=== PATIENT | male | born 1970 | race Caucasian/White ===

== ENCOUNTER → 2017-08-06 | Outpatient (CLI) | payer OTHER | LOC: M RAD 09:19 | DX: R10.9 Unspecified abdominal pain (principal); R31.9 Hematuria, unspecified ==

== ENCOUNTER → 2017-08-06 | Outpatient (REF) | payer OTHER ==
[2017-08-06 14:00] LABS: APPEARANCE, URINE CLOUDY (CLEAR); BACTERIA, URINE AUTO NEGATIVE (NEGATIVE); BILIRUBIN, URINE AUTO NEGATIVE (NEGATIVE); BLOOD, URINE BLOOD 3+ (NEGATIVE); COLOR, URINE YELLOW (YELLOW); GLUCOSE, URINE (UA) AUTO NEGATIVE (NEGATIVE); KETONE, URINE AUTO NEGATIVE (NEGATIVE); LEUKOCYTE ESTERASE, URINE AUTO NEGATIVE (NEGATIVE); MUCUS, URINE SMALL (NEGATIVE); NITRITE, URINE AUTO NEGATIVE (NEGATIVE); PROTEIN, URINE AUTO NEGATIVE (NEGATIVE); RBC, URINE AUTO 23 /HPF (0-3); SPECIFIC GRAVITY URINE AUTO 1.025 (1.002-1.035); SQUAMOUS EPITHELIAL CELL UR AU 3 /HPF (0-6); URIC ACID CRYSTALS SMALL; UROBILINOGEN, URINE AUTO 0.2 mg/dL (0.0-2.0); WBC, URINE AUTO 2 /HPF (0-3)
== END ==
LOC: M SMT 13:41
DX: N20.0 Calculus of kidney (principal); Z01.818 Encounter for other preprocedural examination

== ENCOUNTER → 2017-08-07 | Outpatient (CLI) | payer OTHER ==
[2017-08-07 13:10] LABS: HEMATOCRIT 43.4 % (42.0-52.0); HEMOGLOBIN 15.5 g/dl (14.0-18.0); MEAN CORPUSCULAR HEMOGLOBIN 29.6 pg (27.0-33.0); MEAN CORPUSCULAR HGB CONC 35.7 g/dl (32.0-36.5); PLATELET COUNT, AUTOMATED 206 10^3/uL (150-450); RED BLOOD COUNT 5.23 10^6/uL (4.30-6.10); RED CELL DISTRIBUTION WIDTH 12.3 % (11.5-14.5); WHITE BLOOD COUNT 11.2 10^3/uL (4.0-10.0)
[2017-08-07 13:20] LABS: INR 1.01; PROTHROMBIN TIME 13.4 SECONDS (12.4-14.5)
[2017-08-07 13:21] LABS: PARTIAL THROMBOPLASTIN TIME 28.8 SECONDS (26.8-37.9)
[2017-08-07 13:32] LABS: ANION GAP 10 MEQ/L (8-16); BLOOD UREA NITROGEN 23 MG/DL (7-18); CALCIUM LEVEL 8.8 MG/DL (8.5-10.1); CARBON DIOXIDE LEVEL 26 MEQ/L (21-32); CHLORIDE LEVEL 102 MEQ/L (98-107); CREATININE FOR GFR 1.62 MG/DL (0.70-1.30); GLOMERULAR FILTRATION RATE 48.9 (>60); GLUCOSE, FASTING 111 MG/DL (70-105); POTASSIUM SERUM 4.2 MEQ/L (3.5-5.1); SODIUM LEVEL 138 MEQ/L (136-145)
== END ==
LOC: M SMT 09:23
DX: N20.0 Calculus of kidney (principal)

== ENCOUNTER 2017-08-09 14:17 | Day surgery (SDC) | payer OTHER ==
[2017-08-09 15:39] LABS: APPEARANCE, URINE MANUAL CLOUDY (CLEAR); COLOR, URINE MANUAL RED (YELLOW)
[2017-08-09 15:40] LABS: BASO % 0.2 % (0.0-1.0); BILIRUBIN, URINE MANUAL NEGATIVE (NEGATIVE); BLOOD URINE MANUAL POSITIVE (NEGATIVE); EOS % 0.1 % (0.0-3.0); GLUCOSE, URINE (UA) MANUAL NEGATIVE (NEGATIVE); HEMOGLOBIN 15.1 g/dl (14.0-18.0); IMMATURE GRANULOCYTE # 0.1 10^3/uL (0-0); IMMATURE GRANULOCYTE % 0.4 % (0-0); KETONE, URINE MANUAL NEGATIVE (NEGATIVE); LEUKOCYTE ESTERASE, URINE MAN TRACE (NEGATIVE); LYMPH # 0.9 10^3/uL (1.5-4.5); LYMPH % 6.3 % (24.0-44.0); MEAN CORPUSCULAR HEMOGLOBIN 29.7 pg (27.0-33.0); MEAN CORPUSCULAR VOLUME 82.7 fl (80.0-96.0); MICROSCOPIC INDICATED? MAN YES (NO); MONO % 7.2 % (0.0-5.0); NEUTROPHILS # 11.6 10^3/uL (1.8-7.7); NEUTROPHILS % 85.8 % (36.0-66.0); NITRITE, URINE MANUAL NEGATIVE (NEGATIVE); PLATELET COUNT, AUTOMATED 206 10^3/uL (150-450); PROTEIN, URINE MANUAL 3+ mg/dL (NEGATIVE); RED BLOOD COUNT 5.08 10^6/uL (4.30-6.10); RED CELL DISTRIBUTION WIDTH 12.1 % (11.5-14.5); UROBILINOGEN, URINE MANUAL NORMAL (NORMAL); WHITE BLOOD COUNT 13.5 10^3/uL (4.0-10.0)
[2017-08-09 15:50] LABS: BACTERIA, URINE MOD AMOUNT; HYALINE CAST, URINE NONE SEEN /lpf (0-1); MICROSCOPIC EXAM PERFORMED; RBC, URINE TNTC /hpf (0-3); SQUAMOUS EPITHELIAL CELL URINE NONE SEEN /hpf (SMALL AMT)
[2017-08-09 16:06] LABS: ALBUMIN/GLOBULIN RATIO 1.21 (1.00-1.93); ALKALINE PHOSPHATASE 107 U/L (45-117); ALT/SGPT 33 U/L (12-78); ANION GAP 10 MEQ/L (8-16); AST/SGOT 13 U/L (7-37); BILIRUBIN,DIRECT 0.4 MG/DL (0.0-0.2); BILIRUBIN,TOTAL 1.4 MG/DL (0.2-1.0); BLOOD UREA NITROGEN 27 MG/DL (7-18); CALCIUM LEVEL 8.9 MG/DL (8.5-10.1); CARBON DIOXIDE LEVEL 25 MEQ/L (21-32); CHLORIDE LEVEL 100 MEQ/L (98-107); CREATININE FOR GFR 2.37 MG/DL (0.70-1.30); GLOMERULAR FILTRATION RATE 31.5 (>60); GLUCOSE, FASTING 121 MG/DL (70-105); POTASSIUM SERUM 4.2 MEQ/L (3.5-5.1); SODIUM LEVEL 135 MEQ/L (136-145); TOTAL PROTEIN 7.3 GM/DL (6.4-8.2)
[2017-08-09] MEDS: NS 1,000 ML IV (17:03)
[2017-08-09] MEDS: ONDANSETRON 4MG/2ML VIAL (J2405) IV (17:03)
[2017-08-09] MEDS: MORPHINE 4 MG/ML 1ML SYRINGE IV ×3 (17:04→19:47)
[2017-08-09] MEDS: CEFTRIAXONE SOD 2 GM in APPROPRIATE DILUENT 1 EA IV (17:47)
[2017-08-09] MEDS ORDERED: fentaNYL 100 MCG/2 ML INJECTION (J3010) As Ordered (20:28)
[2017-08-09] MEDS ORDERED: LIDOCAINE 2% INJ 100 MG/5 ML SDV (FOR ANES.) As Ordered (20:28)
[2017-08-09] MEDS ORDERED: PROPOFOL 200 MG/20 ML VIAL As Ordered (20:28)
[2017-08-09] MEDS ORDERED: MIDAZOLAM INJ 2 MG/2 ML VIAL (J2250) As Ordered (20:28)
[2017-08-09] MEDS ORDERED: CONRAY-60 60% 50ML VIAL (Q9961) As Ordered (20:31)
[2017-08-09] MEDS ORDERED: ONDANSETRON 4MG/2ML VIAL (J2405) As Ordered (20:33)
[2017-08-09] MEDS ORDERED: fentaNYL 100 MCG/2 ML INJECTION (J3010) IV (21:45)
[2017-08-09] MEDS ORDERED: ONDANSETRON 4MG/2ML VIAL (J2405) IV ×2 (21:45→22:15)
[2017-08-09] MEDS: LR 1,000 ML IV (21:45)
[2017-08-09] MEDS ORDERED: ALBUTEROL SULFATE 2.5 MG/0.5 ML INH NEB SOLN As Ordered (21:45)
[2017-08-09] MEDS ORDERED: PERCOCET 5MG/325MG TAB As Ordered (21:45)
[2017-08-09] MEDS: PERCOCET 5MG/325MG TAB PO (21:58)
[2017-08-09] MEDS ORDERED: IBUPROFEN 400 MG TAB PO (22:00)
[2017-08-09] MEDS ORDERED: MORPHINE 2 MG/ML 1ML SYRINGE IV (22:00)
[2017-08-09] MEDS ORDERED: PERCOCET 5MG/325MG TAB PO (22:00)
[2017-08-09] MEDS: D5W/0.45% SODIUM CHLORIDE 1,000 ML IV (23:00)
[2017-08-09] MEDS: oxyBUTYnin 5 MG TAB PO (23:50)
[2017-08-10 07:01] LABS: HEMATOCRIT 39.5 % (42.0-52.0); HEMOGLOBIN 13.7 g/dl (14.0-18.0); MEAN CORPUSCULAR HEMOGLOBIN 29.7 pg (27.0-33.0); MEAN CORPUSCULAR HGB CONC 34.7 g/dl (32.0-36.5); MEAN CORPUSCULAR VOLUME 85.5 fl (80.0-96.0); PLATELET COUNT, AUTOMATED 180 10^3/uL (150-450); RED BLOOD COUNT 4.62 10^6/uL (4.30-6.10); RED CELL DISTRIBUTION WIDTH 12.7 % (11.5-14.5); WHITE BLOOD COUNT 9.4 10^3/uL (4.0-10.0)
[2017-08-10 07:26] LABS: ANION GAP 9 MEQ/L (8-16); BLOOD UREA NITROGEN 25 MG/DL (7-18); CARBON DIOXIDE LEVEL 20 MEQ/L (21-32); CHLORIDE LEVEL 105 MEQ/L (98-107); GLOMERULAR FILTRATION RATE 40.7 (>60); GLUCOSE, FASTING 108 MG/DL (70-105); POTASSIUM SERUM 3.8 MEQ/L (3.5-5.1); SODIUM LEVEL 134 MEQ/L (136-145)
[2017-08-10] MEDS: ATORVASTATIN 10 MG TAB PO (10:00)
[2017-08-10] MEDS: INFLUENZA QUADRIVALENT PF VACCINE 0.5ML SYRINGE (90686) IM (12:28)
[2017-08-10] MEDS ORDERED: CEFTRIAXONE SOD 2 GM in APPROPRIATE DILUENT 1 EA IV (17:00)
== END 2017-08-10 13:25 | disposition home or self-care (01) ==
LOC: M ED 14:17 → M ED INP 23:00 → M SDC 14:18 → M ED INP 18:00 → M SDC 08-10 13:25 → M PED 23:00
DX: N20.2 Calculus of kidney with calculus of ureter (principal); E78.5 Hyperlipidemia, unspecified; E66.9 Obesity, unspecified; G47.33 Obstructive sleep apnea (adult) (pediatric); Z68.38 Body mass index [BMI] 38.0-38.9, adult; Z79.899 Other long term (current) drug therapy
CPT/HCPCS: 52332

== ENCOUNTER → 2017-08-12 | Outpatient (CLI) | payer OTHER ==
[2017-08-12 21:22] LABS: ANION GAP 9 MEQ/L (8-16); BLOOD UREA NITROGEN 18 MG/DL (7-18); CALCIUM LEVEL 8.9 MG/DL (8.5-10.1); CARBON DIOXIDE LEVEL 26 MEQ/L (21-32); CHLORIDE LEVEL 106 MEQ/L (98-107); CREATININE FOR GFR 1.19 MG/DL (0.70-1.30); GLOMERULAR FILTRATION RATE > 60.0 (>60); GLUCOSE, FASTING 91 MG/DL (70-105); POTASSIUM SERUM 4.2 MEQ/L (3.5-5.1); SODIUM LEVEL 141 MEQ/L (136-145)
== END ==
LOC: M SMT 13:25
DX: N20.0 Calculus of kidney (principal)
CPT/HCPCS: 80048

== ENCOUNTER 2017-08-16 05:55 | Day surgery (SDC) | payer OTHER ==
[2017-08-16] MEDS ORDERED: LIDOCAINE 1% MDV 20ML VIAL SQ (06:00)
[2017-08-16] MEDS ORDERED: LR 1,000 ML IV ×2 (06:00→09:45)
[2017-08-16] MEDS ORDERED: fentaNYL 100 MCG/2 ML INJECTION (J3010) As Ordered (07:16)
[2017-08-16] MEDS ORDERED: MIDAZOLAM INJ 2 MG/2 ML VIAL (J2250) As Ordered (07:16)
[2017-08-16] MEDS ORDERED: ONDANSETRON 4MG/2ML VIAL (J2405) As Ordered (07:16)
[2017-08-16] MEDS ORDERED: LIDOCAINE 2% INJ 100 MG/5 ML SDV (FOR ANES.) As Ordered (07:16)
[2017-08-16] MEDS ORDERED: dexameTHASONE 4 MG/ML 1ML VIAL (J1100) As Ordered (07:16)
[2017-08-16] MEDS ORDERED: KETOROLAC 60 MG/2 ML VIAL (J1885) As Ordered (07:16)
[2017-08-16] MEDS ORDERED: PROPOFOL 200 MG/20 ML VIAL As Ordered (07:16)
[2017-08-16] MEDS: CONRAY-60 60% 50ML VIAL (Q9961) As Ordered (07:49)
[2017-08-16] MEDS ORDERED: PHENYLephrine HCL 500 MCG/5 ML (100MCG/ML) SYRINGE (J2370) As Ordered (08:39)
[2017-08-16] MEDS ORDERED: PERCOCET 5MG/325MG TAB PO ×2 (09:45)
[2017-08-16] MEDS ORDERED: ONDANSETRON 4MG/2ML VIAL (J2405) IV (09:45)
[2017-08-16] MEDS ORDERED: fentaNYL 100 MCG/2 ML INJECTION (J3010) IV (09:45)
[2017-08-16] MEDS ORDERED: oxyBUTYnin 5 MG TAB PO (09:45)
== END 2017-08-16 10:15 | disposition home or self-care (01) ==
LOC: M SDC 05:55
DX: N20.0 Calculus of kidney (principal); E78.5 Hyperlipidemia, unspecified; R06.02 Shortness of breath; G47.33 Obstructive sleep apnea (adult) (pediatric); Z79.899 Other long term (current) drug therapy; Z72.0 Tobacco use
CPT/HCPCS: 52356

== ENCOUNTER → 2018-06-10 | Outpatient (CLI) | payer OTHER | LOC: M RAD 12:39 | DX: J32.0 Chronic maxillary sinusitis (principal); J34.2 Deviated nasal septum | CPT/HCPCS: 70486 ==

== ENCOUNTER 2018-06-30 08:12 | Day surgery (SDC) | payer OTHER ==
[~2018-06-30] VITALS: Ht 182.9 cm; Wt 122.5 kg
[~2018-06-30 08:12] MED LIST: ATOR1TAB19 PO; CIPR-249 PO; FLOM0.4C39 PO; LIDOCAINE 1% MDV 20ML VIAL SQ PRN; MODA100T13 PO; OXYC1TAB23 PO; PERC5TAB12 PO
[2018-06-30] MEDS ORDERED: LR 1,000 ML IV ONE (08:30)
[2018-06-30] MEDS ORDERED: fentaNYL 100 MCG/2 ML INJECTION (J3010) As Ordered ONE (10:12)
[2018-06-30] MEDS ORDERED: PROPOFOL 200 MG/20 ML VIAL As Ordered ONE ×2 (10:12→10:48)
[2018-06-30] MEDS ORDERED: ROCURONIUM BROMIDE 50 MG/5 ML VIAL As Ordered ONE (10:12)
[2018-06-30] MEDS ORDERED: LIDOCAINE 2% INJ 100 MG/5 ML SDV (FOR ANES.) As Ordered ONE (10:12)
[2018-06-30] MEDS ORDERED: MIDAZOLAM INJ 2 MG/2 ML VIAL (J2250) As Ordered ONE (10:12)
[2018-06-30] MEDS ORDERED: LIDOCAINE W/EPINEPHRINE 1% 20ML VIAL As Ordered ONE (10:33)
[2018-06-30] MEDS ORDERED: OXYMETAZOLINE NASAL SPRAY (AFRIN) As Ordered ONE (10:33)
[2018-06-30] MEDS ORDERED: METHYLENE BLUE 0.5% (5MG/ML) 10 ML AMP (PROVAYBLUE)(Q9968 PER 1MG) As Ordered ONE (10:33)
[2018-06-30] MEDS ORDERED: EPINEPHrine 1MG/ML INJ 30ML MD-VIAL As Ordered ONE (10:33)
[2018-06-30] MEDS ORDERED: dexameTHASONE 4 MG/ML 1ML VIAL (J1100) As Ordered ONE (11:03)
[2018-06-30] MEDS ORDERED: ONDANSETRON 4MG/2ML VIAL (J2405) As Ordered ONE (11:03)
[2018-06-30] MEDS ORDERED: HYDROMORPHONE HCL 0.5 MG/ 0.5 ML SYRINGE (J1170 PER 1) IV PRN (12:45)
[2018-06-30] MEDS ORDERED: IBUPROFEN 800 MG TAB PO PRN (12:45)
[2018-06-30] MEDS ORDERED: PERCOCET 5MG/325MG TAB PO PRN ×2 (12:45)
[2018-06-30] MEDS ORDERED: LR 1,000 ML IV SCH (12:45)
[2018-06-30] MEDS ORDERED: ONDANSETRON 4MG/2ML VIAL (J2405) IV PRN (12:45)
[2018-06-30] MEDS ORDERED: fentaNYL 100 MCG/2 ML INJECTION (J3010) IV PRN (12:45)
[2018-06-30 13:52] VITALS: BP 115/72
--- NOTE | 2018-08-06 12:48 | RO ---
DATE OF PROCEDURE: 06/30/2018 PREPROCEDURE DIAGNOSES: 1. Deviated nasal septum. 2. Chronic left maxillary sinusitis. POSTPROCEDURE DIAGNOSES: 1. Deviated nasal septum. 2. Chronic left maxillary sinusitis. PROCEDURE: 1. Septoplasty. 2. Left endoscopic antrostomy with ethmoidectomy. SURGEON: Dr. Gamaliel Foster. WIRE WEAVING LOOM SETTER: ANESTHESIA: General endotracheal anesthesia. INDICATION: This is a 48-year-old who presents with a long history of nasal obstruction, chronic congestion and recurring infections in the nose. DESCRIPTION OF PROCEDURE: Under satisfactory general endotracheal anesthesia administered and a pharyngeal pack placed. The nose was prepared for surgery by putting cotton-soaked pledgets with Afrin solution to the nasal cavity bilaterally. 1% Xylocaine with 1:100,000 epinephrine was used to inject the nasal septum. A Uriah incision was made on the left side of the nose. A mucoperichondrial flap and envelope was created on the left side of the nasal septum and carried down to the junction of the bony and cartilaginous septum. This was then with an elevator, and an envelope was then created on the right side of the septum. A Meche scissors was used to make a cut high in the perpendicular plate in the midportion of the vomer, and a central segment of the bony septum was resected. Next, with the round knife on the [place] elevator, a strip of cartilage was resected from the floor of the nose, mobilizing the quadrilateral cartilage and creating a swinging door. Then, a central segment of cartilaginous septum was resected, preserving a 1 cm dorsal and caudal strut. Double-action rongeur was used to take down deflected portions of the perpendicular plate, as well. Finally, the maxillary crest spur was taken down after elevating mucoperiosteum off both sides of it with a chisel. A segment of the resected cartilage was morselized and placed back into the septal envelope. The incision was closed using an interrupted #5-0 chromic suture. Then, a #4-0 plain suture was placed in a [id number]-ykb-[id number] fashion through the two leaves of mucoperichondrium to appose them. Endoscopic surgery: We started on the left side first using the 0-degree telescope for the procedure. Injection was done with 1% Xylocaine with 1:100,000 epinephrine to the left lateral nasal wall middle turbinate. Microdebrider was the primary instrument and the uncinate process was taken down. Ethmoid bulla perforated and resected away with the microdebrider. The grand lamella was then perforated in the medial inferior quadrant and then working posteriorly to anteriorly, following the lamina papyracea skull base lamella bone and hyperplastic mucosa was resected. Superior, the superior ethmoid cell was opened and the remnants and process was taken down to enlarge the access to the nasal frontal recess. Finally, the antral maxillary sinus ostia was identified. It was cannulated with a side suction and then using a combination of the microdebrider and side-biters enlarged a antrostomy was then created and thick mucous secretions were evacuated from the maxillary sinuses. There appeared to be a mucocele in the floor of the sinus that was also resected by using the microdebrider to reach it. Adrenaline pledgets were placed into the left side of the nose, the middle meatus and after 4 minutes, there was no significant bleeding and they were removed. Then a Propel implant was inserted with Sinu-foam placed into the Propel. Pharyngeal pack was removed, throat suctioned and patient awakened and extubated and sent to the recovery room in satisfactory condition. He will be seen back in the office in 3 days.
== END 2018-06-30 13:54 | disposition home or self-care (01) ==
LOC: M SDC 08:12 → EEVIPCON 08:12 → M SDC 13:54
PROVIDERS: ATTEND Specialist
DX: J34.2 Deviated nasal septum (principal); J32.0 Chronic maxillary sinusitis; E78.00 Pure hypercholesterolemia, unspecified; R29.898 Other symptoms and signs involving the musculoskeletal system; R06.83 Snoring; G47.33 Obstructive sleep apnea (adult) (pediatric); E66.9 Obesity, unspecified; Z68.37 Body mass index [BMI] 37.0-37.9, adult; Z79.899 Other long term (current) drug therapy; Z87.442 Personal history of urinary calculi
CPT/HCPCS: 30520; 31255; 31256; 88300; C2625; J1100; J2250; J2405; J3010; Q9968

== ENCOUNTER → 2018-11-07 | Outpatient (REF) | payer OTHER ==
[~2018-11-07] MED LIST changes: -LIDOCAINE 1% MDV 20ML VIAL SQ PRN
[2018-11-07 18:11] LABS: APPEARANCE, URINE CLEAR (CLEAR); BACTERIA, URINE AUTO NEGATIVE (NEGATIVE); BILIRUBIN, URINE AUTO NEGATIVE (NEGATIVE); BLOOD, URINE BLOOD 3+ (NEGATIVE); CALCIUM OXALATE CRYSTALS SMALL; COLOR, URINE YELLOW (YELLOW); GLUCOSE, URINE (UA) AUTO NEGATIVE (NEGATIVE); KETONE, URINE AUTO NEGATIVE (NEGATIVE); LEUKOCYTE ESTERASE, URINE AUTO NEGATIVE (NEGATIVE); MUCUS, URINE SMALL (NEGATIVE); NITRITE, URINE AUTO NEGATIVE (NEGATIVE); PROTEIN, URINE AUTO NEGATIVE (NEGATIVE); RBC, URINE AUTO 72 /HPF (0-3); SPECIFIC GRAVITY URINE AUTO 1.021 (1.002-1.035); SQUAMOUS EPITHELIAL CELL UR AU 0 /HPF (0-6); WBC, URINE AUTO 2 /HPF (0-3)
== END ==
LOC: M SMT 17:11
PROVIDERS: ATTEND Nurse Practitioner Women's Health
DX: R31.0 Gross hematuria (principal)

== ENCOUNTER → 2018-11-12 | Outpatient (CLI) | payer OTHER ==
--- NOTE | 2018-11-12 19:15 | REP ---
CT of the abdomen pelvis without IV and oral contrast for renal calculi: Comparison is 08/06/2017. There is a 13 x 8 mm nonobstructive calcification in the left renal pelvis as an interval change. Left kidney: There are three small nonobstructive calculi in the left renal lower pole each measuring approximate 3 mm in diameter, as an interval change. The previous left renal calculus near the left UPJ is no longer present. There is no hydronephrosis or perinephric stranding. Right Kidney: There is 8 x 6 ml calculus, nonobstructive, in the right renal pelvis. This measured 6 mm previously. There is a nonobstructive 5 ml calculus in the right renal pelvis, not present previously. The previous right renal calculi are no longer identified. There is no right hydronephrosis or perinephric stranding. There are no ureteral calculi on the right on the left. There are no bladder calculi. The visualized lung melchor are unremarkable. The unenhanced hepatic parenchyma, gallbladder, pancreas, spleen, adrenals and abdominal aorta are unremarkable and unchanged. There is no bowel distension or obstruction. Mesentery is unremarkable. Pelvis: The appendix is unremarkable. There is no adenopathy or ascites. There is diverticulosis without diverticulitis. Impression: There are bilateral renal calculi as described. There is no hydronephrosis. There are no ureteral calculi. No bladder calculi. Diverticulosis without diverticulitis. Electronically Signed by Donato Lechuga MD 11/12/2018 07:07 P
== END ==
LOC: M RAD 16:04
PROVIDERS: ATTEND Nurse Practitioner Women's Health
DX: N20.0 Calculus of kidney (principal); K57.90 Diverticulosis of intestine, part unspecified, without perforation or abscess without bleeding; Z87.442 Personal history of urinary calculi

== ENCOUNTER → 2018-11-21 | Outpatient (CLI) | payer OTHER ==
[2018-11-21 14:17] LABS: HEMATOCRIT 43.9 % (42.0-52.0); MEAN CORPUSCULAR HEMOGLOBIN 29.7 pg (27.0-33.0); MEAN CORPUSCULAR HGB CONC 34.2 g/dl (32.0-36.5); MEAN CORPUSCULAR VOLUME 86.9 fl (80.0-96.0); PLATELET COUNT, AUTOMATED 185 10^3/uL (150-450); RED BLOOD COUNT 5.05 10^6/uL (4.30-6.10); WHITE BLOOD COUNT 5.7 10^3/uL (4.0-10.0)
[2018-11-21 14:23] LABS: BLOOD UREA NITROGEN 19 MG/DL (7-18); CALCIUM LEVEL 8.7 MG/DL (8.5-10.1); CARBON DIOXIDE LEVEL 28 MEQ/L (21-32); CHLORIDE LEVEL 107 MEQ/L (98-107); CREATININE FOR GFR 1.12 MG/DL (0.70-1.30); GLOMERULAR FILTRATION RATE > 60.0 (>60); GLUCOSE, FASTING 86 MG/DL (70-100); POTASSIUM SERUM 4.5 MEQ/L (3.5-5.1); SODIUM LEVEL 140 MEQ/L (136-145)
[2018-11-21 14:43] LABS: INR 0.95; PROTHROMBIN TIME 12.8 SECONDS (12.1-14.4)
[2018-11-21 14:44] LABS: PARTIAL THROMBOPLASTIN TIME 30.3 SECONDS (25.4-37.6)
== END ==
LOC: M SMT 09:10
PROVIDERS: ATTEND Nurse Practitioner Women's Health
DX: N20.0 Calculus of kidney (principal); Z01.812 Encounter for preprocedural laboratory examination

== ENCOUNTER 2018-11-26 11:53 | Day surgery (SDC) | payer OTHER ==
[~2018-11-26] VITALS: Ht 182.9 cm; Wt 126.1 kg
[~2018-11-26 11:53] MED LIST changes: +LR 1,000 ML IV ONE; +ceFAZolin SOD 1 GM in D5W MINI-BAG PLUS 50 ML IV ONE
[2018-11-26] MEDS ORDERED: OXYC1TAB23 PO (12:44)
[2018-11-26] MEDS ORDERED: MIDAZOLAM INJ 2 MG/2 ML VIAL (J2250) As Ordered ONE (14:52)
[2018-11-26] MEDS ORDERED: fentaNYL 100 MCG/2 ML INJECTION (J3010) As Ordered ONE (14:53)
[2018-11-26] MEDS ORDERED: ONDANSETRON 4MG/2ML VIAL (J2405) As Ordered ONE (14:53)
[2018-11-26] MEDS ORDERED: dexameTHASONE 4 MG/ML 1ML VIAL (J1100) As Ordered ONE (14:53)
[2018-11-26] MEDS ORDERED: PROPOFOL 200 MG/20 ML VIAL As Ordered ONE (14:53)
[2018-11-26] MEDS ORDERED: LIDOCAINE 2% INJ 100 MG/5 ML SDV (FOR ANES.) As Ordered ONE (14:53)
[2018-11-26] MEDS ORDERED: CONRAY-60 60% 50ML VIAL (Q9961) As Ordered ONE (15:56)
[2018-11-26] MEDS ORDERED: PERCOCET 5MG/325MG TAB PO PRN ×2 (18:45)
[2018-11-26] MEDS ORDERED: fentaNYL 100 MCG/2 ML INJECTION (J3010) IV PRN (18:45)
[2018-11-26] MEDS ORDERED: oxyBUTYnin 5 MG TAB PO PRN (18:45)
[2018-11-26] MEDS ORDERED: ONDANSETRON 4MG/2ML VIAL (J2405) IV PRN (18:45)
[2018-11-26] MEDS ORDERED: LR 1,000 ML IV SCH (18:45)
[2018-11-26] MEDS: PERCOCET 5MG/325MG TAB PO PRN ×2 (19:12→19:42)
--- NOTE | 2018-11-26 19:24 | REP ---
RETROGRADE PYELOGRAM, ONE VIEW: HISTORY: Bilateral renal stones. A single radiograph was obtained with a C-ARM. The patient is status-post bilateral ureteral stent placement. Fluoroscopy time 24 seconds. IMPRESSION:Retrograde pyelogram as described above. Electronically Signed by Keith Gu MD 11/26/2018 07:26 P
[2018-11-26] MEDS ORDERED: KETOROLAC 30 MG/ML VIAL (J1885) As Ordered ONE (20:38)
[2018-11-26] MEDS ORDERED: KETOROLAC 30 MG/ML VIAL (J1885) IV ONE (20:45)
[2018-11-26 21:20] VITALS: BP 127/70
--- NOTE | 2018-11-27 10:09 | RO ---
DATE OF PROCEDURE: 11/26/2018 PREPROCEDURE DIAGNOSIS: Bilateral kidney stones. POSTPROCEDURE DIAGNOSIS: Bilateral kidney stones. PROCEDURE: Cystoscopy, bilateral ureteroscopy and laser lithotripsy and basket extraction of the stones, bilateral retrograde pyelogram with intraoperative interpretation of images, bilateral ureteral stent placement. SURGEON: Dr. Tomás Guerra. NIGHT MANAGER: None. ANESTHESIA: General. OPERATIVE INDICATIONS: This is a 48-year-old male who was recently found to have bilateral kidney stones measuring up to [address] scan. He was brought to the operating room today for treatment. DESCRIPTION OF PROCEDURE: The patient was brought to the operating room and general anesthesia induced. Prophylactic antibiotics were infused. He was then placed in the dorsal lithotomy position and prepped and draped in the usual sterile fashion. A rigid cystoscope was then inserted into the urethral meatus and advanced to the bladder. Once inside the bladder, a guidewire was advanced up the left collecting system. A ureteral access sheath was advanced up the left collecting system. I then went up the access sheath with the flexible ureteroscope and examined the kidney thoroughly. Of note, getting the scope into the kidney was a little bit difficult as the patient had a moderately narrow ureter. In the lower pole of the left kidney, an approximately a 1 cm stone was seen. This stone was repositioned and then fragmented into several smaller pieces using 200 micron laser fiber. All the fragments were then removed using a stone basket. Once I was satisfied all the stone fragments had been removed, a retrograde pyelogram performed. It was notable for mild left hydronephrosis with no extravasation. I then withdrew the ureteroscope along with the access sheath and utilized the wire to advance a 6-Yemeni x 22-32 cm JJ ureteral stent up the left collecting system. The wire was then removed and there was adequate curls of the stent in the left renal pelvis and in the bladder. I then turned my attention to the right collecting system and advanced the wire up the right collecting system. I advanced an access sheath up the right collecting system. I went up the access sheath with the flexible ureteroscope and examined the right kidney thoroughly. In the lower pole jannette I found a 1 cm size stone as well as a few other smaller stones. The 1 cm stone was repositioned and then fragmented into to smaller pieces using a 200 micron laser fiber. All the visible stones within the right kidney were then removed using a basket. Once done, a retrograde pyelogram was performed and was notable for mild right hydronephrosis with no extravasation. I then withdrew the ureteroscope along with the access sheath and no additional stones were seen within the ureter. I then utilized the wire to advance a 6-Yemeni x 22-32 cm JJ ureteral stent up the right collecting system. The wire was removed and there were adequate curls of the stent in the right renal pelvis and in the bladder. The bladder was emptied of all fluids and this marked the completion of the procedure. The patient was then taken out of the dorsal lithotomy position, awakened from anesthesia and transferred to the recovery room instable condition. ESTIMATED BLOOD LOSS: 5 mL. COMPLICATIONS: None. SPECIMENS: Kidney stone fragments. PLAN: Patient will followup in the clinic in a few weeks for stent removal. LARRY
== END 2018-11-26 21:30 | disposition home or self-care (01) ==
LOC: M SDC 11:53
PROVIDERS: ATTEND Urology
DX: N20.0 Calculus of kidney (principal); E78.5 Hyperlipidemia, unspecified; R06.83 Snoring; G47.33 Obstructive sleep apnea (adult) (pediatric); E66.9 Obesity, unspecified; Z68.37 Body mass index [BMI] 37.0-37.9, adult

== ENCOUNTER → 2018-12-17 | Outpatient (CLI) | payer OTHER ==
[~2018-12-17] MED LIST changes: -LR 1,000 ML IV ONE; -ceFAZolin SOD 1 GM in D5W MINI-BAG PLUS 50 ML IV ONE
--- NOTE | 2018-12-17 13:46 | REP ---
Clinical: Ureteral stone. Technique: Single supine view of the abdomen and pelvis. Findings: Bilateral ureteral stents in satisfactory position. No obvious urinary tract calcifications are appreciated. Bowel gas pattern is nonspecific. Skeletal structures are intact. Impression: Ureteral stent in satisfactory position. No obvious urinary calcifications identified. Electronically Signed by Allen Dodge MD 12/17/2018 01:37 P
== END ==
LOC: M SMT 13:22
PROVIDERS: ATTEND Urology
DX: Z96.0 Presence of urogenital implants (principal); Z87.442 Personal history of urinary calculi

== ENCOUNTER → 2018-12-18 | Outpatient (REF) | payer OTHER | LOC: M LAB REF 12:54 | PROVIDERS: ATTEND Nurse Practitioner Adult Health | DX: N20.0 Calculus of kidney (principal) ==

== ENCOUNTER → 2018-12-28 | Outpatient (REF) | payer OTHER ==
[2018-12-28 21:55] LABS: APPEARANCE, URINE CLEAR (CLEAR); BACTERIA, URINE AUTO NEGATIVE (NEGATIVE); BILIRUBIN, URINE AUTO NEGATIVE (NEGATIVE); BLOOD, URINE BLOOD 2+ (NEGATIVE); COLOR, URINE YELLOW (YELLOW); GLUCOSE, URINE (UA) AUTO NEGATIVE (NEGATIVE); KETONE, URINE AUTO NEGATIVE (NEGATIVE); LEUKOCYTE ESTERASE, URINE AUTO NEGATIVE (NEGATIVE); NITRITE, URINE AUTO NEGATIVE (NEGATIVE); PROTEIN, URINE AUTO NEGATIVE (NEGATIVE); RBC, URINE AUTO 17 /HPF (0-3); SPECIFIC GRAVITY URINE AUTO 1.018 (1.002-1.035); SQUAMOUS EPITHELIAL CELL UR AU 0 /HPF (0-6); UROBILINOGEN, URINE AUTO 0.2 mg/dL (0.0-2.0); WBC, URINE AUTO 6 /HPF (0-3)
== END ==
LOC: M LAB REF 10:18
PROVIDERS: ATTEND Physician Assistant
DX: N39.0 Urinary tract infection, site not specified (principal)

== ENCOUNTER → 2019-01-05 | Outpatient (REF) | payer OTHER ==
[2019-01-05 18:59] LABS: APPEARANCE, URINE CLEAR (CLEAR); BACTERIA, URINE AUTO NEGATIVE (NEGATIVE); BILIRUBIN, URINE AUTO NEGATIVE (NEGATIVE); BLOOD, URINE BLOOD 2+ (NEGATIVE); COLOR, URINE YELLOW (YELLOW); GLUCOSE, URINE (UA) AUTO NEGATIVE (NEGATIVE); KETONE, URINE AUTO NEGATIVE (NEGATIVE); LEUKOCYTE ESTERASE, URINE AUTO NEGATIVE (NEGATIVE); MUCUS, URINE SMALL (NEGATIVE); NITRITE, URINE AUTO NEGATIVE (NEGATIVE); PROTEIN, URINE AUTO NEGATIVE (NEGATIVE); RBC, URINE AUTO 7 /HPF (0-3); SQUAMOUS EPITHELIAL CELL UR AU 0 /HPF (0-6); UROBILINOGEN, URINE AUTO 0.2 mg/dL (0.0-2.0); WBC, URINE AUTO 2 /HPF (0-3)
== END ==
LOC: M SMT 17:18
PROVIDERS: ATTEND Nurse Practitioner Women's Health
DX: N39.0 Urinary tract infection, site not specified (principal)

== ENCOUNTER → 2019-01-21 | Outpatient (CLI) | payer OTHER ==
[2019-01-21 13:33] LABS: BLOOD UREA NITROGEN 18 MG/DL (7-18); CALCIUM LEVEL 9.3 MG/DL (8.5-10.1); CARBON DIOXIDE LEVEL 26 MEQ/L (21-32); CHLORIDE LEVEL 105 MEQ/L (98-107); CREATININE FOR GFR 1.17 MG/DL (0.70-1.30); GLOMERULAR FILTRATION RATE > 60.0 (>60); GLUCOSE, FASTING 92 MG/DL (70-100); POTASSIUM SERUM 4.7 MEQ/L (3.5-5.1); SODIUM LEVEL 138 MEQ/L (136-145); URIC ACID 6.3 MG/DL (3.5-7.2)
== END ==
LOC: M SMT 08:02
PROVIDERS: ATTEND Nurse Practitioner Women's Health
DX: N20.0 Calculus of kidney (principal)

== ENCOUNTER → 2019-04-21 | Outpatient (REF) | payer OTHER ==
[2019-04-21 18:15] LABS: FREE T4 1.03 NG/DL (0.76-1.46); THYROID STIMULATING HORMONE 1.16 uIU/ML (0.358-3.740)
[2019-04-24 00:08] LABS: VITAMIN D 1,25 DIHYDROXY 51.2 pg/mL (19.9-79.3)
== END ==
LOC: M LAB REF 17:03
PROVIDERS: ATTEND Internal Medicine Nephrology
DX: R82.994 Hypercalciuria (principal)

== ENCOUNTER → 2019-07-01 | Outpatient (REF) | payer OTHER ==
[2019-07-01 16:02] LABS: RHEUMATOID FACTOR QUANT < 10.0 IU/ML (<15.0)
[2019-07-01 16:14] LABS: FOLATE 11.5 NG/ML; VITAMIN B12 LEVEL 482 PG/ML
[2019-07-02 14:07] LABS: ANTINUCLEAR ANTIBODIES DIRECT Negative (Negative); CERULOPLASMIN 21.1 mg/dL (16.0-31.0)
== END ==
LOC: M LAB REF 13:04
PROVIDERS: ATTEND Psychiatry & Neurology Neurology
DX: R26.89 Other abnormalities of gait and mobility (principal)

== ENCOUNTER → 2019-10-09 | Outpatient (CLI) | payer OTHER ==
--- NOTE | 2019-10-09 12:22 | REP ---
CT abdomen pelvis without IV or oral contrast: History: Acute kidney failure. Comparison CT study is from November 12, 2018. CT findings: Digital preliminary preload supervisor radiograph is unremarkable. Normal bowel gas pattern is seen. Axial CT images demonstrate that the lung bases are clear. The liver is normal in size, homogeneous in texture. There is an accessory splenule. Spleen is 14.4 cm in greatest dimension mildly prominent in size but unchanged. No adrenal lesion is seen. There is a stable celiac axis lymph node in the upper abdomen measuring 11 mm in short axis dimension unchanged from the prior study. No retroperitoneal mass or adenopathy is seen. No abnormalities noted in the gallbladder or within the pancreas. Small and large bowel loops are normal in the upper abdomen and pelvis. Normal appendix is seen in the right lower quadrant. There is sigmoid colon diverticulosis and distal descending colon diverticulosis without CT evidence of diverticulitis. There is a linear metallic density and within the lumen of one of the distal small bowel loops in the right lower quadrant. This is 16 mm in length. Apparently ingested material versus endoscopically placed mucosal clip. Correlate with history. There is a 3 mm intrarenal calculus in the right kidney collecting system lower pole. A 2 mm intrarenal calculus is seen in the lower pole of the left kidney. No hydronephrosis is noted on either side. The large calculus noted in the renal pelvis in each kidney on the November 12, 2018 study is no longer apparent. No hydroureter or ureteral calculus is observed. No bladder calculus is seen. There are dystrophic calcifications in the prostate gland. Seminal vesicles and urinary bladder are unremarkable. Impression: No evidence of hydronephrosis. There is a tiny intrarenal calculus in each kidney. No ureteral stone or bladder stone seen. Left colonic diverticulosis. Normal appendix. Small cylindrical apparently ingested metallic density in the distal ileum uncertain significance. Question endoscopically placed mucosal clip versus ingested material. Electronically Signed by Esau Brown MD 10/09/2019 03:51 P
== END ==
LOC: M RAD 11:20
PROVIDERS: ATTEND Internal Medicine Nephrology
DX: N17.9 Acute kidney failure, unspecified (principal); Z87.442 Personal history of urinary calculi; R82.994 Hypercalciuria; N20.0 Calculus of kidney; K57.30 Diverticulosis of large intestine without perforation or abscess without bleeding

== ENCOUNTER 2020-08-25 12:06 | Emergency (ER) | payer OTHER ==
[~2020-08-25] VITALS: Ht 182.9 cm; Wt 125.0 kg
--- OUTSIDE RECORDS SUMMARY | 2020-08-25 12:13 | CCD | Continuity of Care Document ---
Author Author Igor SIBLEY M.D. Organization Unknown Address [address] [place] [id number] Phone [phone] Care Team Providers Care Health Aide Name Role Phone Katie José AUTM [phone] Problems Active Problems Provider Date Obstructive sleep apnea syndrome Kari Sibley M.D. Onset: 03/06/2018 Malaise and fatigue Kari Sibley M.D. Onset: 03/06/2018 Hypersomnia Kari Sibley M.D. Onset: 03/06/2018 Attention deficit hyperactivity disorder, predominantl y inattentive type Kari Sibley M.D. Onset: 03/06/2018 Mild cognitive disorder Kari Sibley M.D. Onset: 8 Periodic limb movement disorder Kari Sibley M.D. Onset: 0 12/24/2018 Social History Type Date Description Comments Sex Unknown Tobacco Use Start: Unknown Patient has never smoked Allergies, Adverse Reactions, Alerts Description No Known Drug Allergies Medications Active Medications SIG Qnty Indications Ordering Provide r Date Modafinil 100mg Tablets 1 po bid at 900 and 1300 60tabs Kari Sibley M.D. 03/01/2020 Methylphenidate HCL 20mg Tablets take 1 by mouth bid. 60tabs Kari Sibley M.D. 06/30/2019 Immunizations Description No Information Available Vital Signs Date Vital Result Comment 03/06/2018 8:53am BP Systolic 110 mmHg BP Diastolic 70 mmHg Heart Rate 74 /min Respiratory Rate 14 /min Height 72 inches 6'0" Weight 275.00 lb BMI (Body Mass Index) 37.3 kg/m2 [place] Body Weight 178 lb Results Description No Information Available Procedures Description No Information Available Medical Devices Description No Information Available Encounters Type Date Location Provider Dx Diagnosis Office Visit 07/05/2020 12:15p [place] G47.33 Obstructive sleep apnea (adult) (pediatric) G47.61 Periodic limb movement disor jose G47.14 Hypersomnia due to medical c ondition R53.83 Other fatigue R41.840 Attention and concentration deficit G31.84 Mild cognitive impairment, s o stated Office Visit 03/01/2020 2:15p Main office - [facility] Diaz G47.33 Obstructive sleep apnea (adult) (pediatric) G47.61 Periodic limb movement disor jose G47.14 Hypersomnia due to medical c ondition R53.83 Other fatigue R41.840 Attention and concentration deficit G31.84 Mild cognitive impairment, s o stated Assessments Date Code Description Provider 07/05/2020 G47.33 Obstructive sleep apnea (adult) (pediatric) Kari Sibley M.D. 07/05/2020 G47.61 Periodic limb movement disorder Kari Sibley M.D. 07/05/2020 G47.14 Hypersomnia due to medical condi tion Jacque Dukes.DPatricia 07/05/2020 R53.83 Other fatigue Kari Sibley M.D. 07/05/2020 R41.840 Attention and concentration defi cit Kari Sibley M.D. 07/05/2020 G31.84 Mild cognitive impairment, so st atengozi Sibley M.D. 03/01/2020 G47.33 Obstructive sleep apnea (adult) (pediatric) Kari Sibley M.D. 03/01/2020 G47.61 Periodic limb movement disorder Kari Sibley M.D. 03/01/2020 G47.14 Hypersomnia due to medical condi tion Kari Sibley M.D. 03/01/2020 R53.83 Other fatigue Kari Sibley M.D. 03/01/2020 R41.840 Attention and concentration defi cit Kari Sibley M.D. 03/01/2020 G31.84 Mild cognitive impairment, so st atengozi Sibley M.D. Plan of Treatment No Information Available Functional Status Description No Information Available Mental Status Description No Information Available Referrals Description No Information Available
--- OUTSIDE RECORDS SUMMARY | 2020-08-25 12:13 | CCD ---
Author Author [facility] Organization [facility] Address Unknown Phone Unavailable Care Team Providers Care Private Wealth Advisor Name Role Phone LePine, M Katie DOCUMENTATION BILLING CLERK Unavailable Unavailable LePine, M Katie DOCUMENTATION BILLING CLERK Unavailable Unavailable LePine, M Katie DOCUMENTATION BILLING CLERK Unavailable Unavailable LePine, M Katie DOCUMENTATION BILLING CLERK Unavailable Unavailable LePine, M Katie DOCUMENTATION BILLING CLERK Unavailable Unavailable LePine, M Katie DOCUMENTATION BILLING CLERK Unavailable Unavailable LePine, M Katie DOCUMENTATION BILLING CLERK Unavailable Unavailable LePine, M Katie DOCUMENTATION BILLING CLERK Unavailable Unavailable LePine, M Katie DOCUMENTATION BILLING CLERK Unavailable Unavailable LePine, M Katie DOCUMENTATION BILLING CLERK Unavailable Unavailable LePine, M Katie DOCUMENTATION BILLING CLERK Unavailable Unavailable LePine, M Katie DOCUMENTATION BILLING CLERK Unavailable Unavailable LePine, M Katie DOCUMENTATION BILLING CLERK Unavailable Unavailable LePine, M Katie DOCUMENTATION BILLING CLERK Unavailable Unavailable LePine, M Katie DOCUMENTATION BILLING CLERK Unavailable Unavailable LePine, M Aktie DOCUMENTATION BILLING CLERK Unavailable Unavailable LePine, M Katie DOCUMENTATION BILLING CLERK Unavailable Unavailable LePine, M Katie DOCUMENTATION BILLING CLERK Unavailable Unavailable LePine, M Katie DOCUMENTATION BILLING CLERK Unavailable Unavailable LePine, M Katie DOCUMENTATION BILLING CLERK Unavailable Unavailable LePine, M Katie DOCUMENTATION BILLING CLERK Unavailable Unavailable LePine, M Katie DOCUMENTATION BILLING CLERK Unavailable Unavailable LePine, M Katie DOCUMENTATION BILLING CLERK Unavailable Unavailable LePine, M Katie DOCUMENTATION BILLING CLERK Unavailable Unavailable LePine, M Katie DOCUMENTATION BILLING CLERK Unavailable Unavailable LePine, M Katie DOCUMENTATION BILLING CLERK Unavailable Unavailable LePine, M Katie DOCUMENTATION BILLING CLERK Unavailable Unavailable LePine, M Katie DOCUMENTATION BILLING CLERK Unavailable Unavailable LePine, M Katie DOCUMENTATION BILLING CLERK Unavailable Unavailable LePine, M Katie DOCUMENTATION BILLING CLERK Unavailable Unavailable LePine, M Katie DOCUMENTATION BILLING CLERK Unavailable Unavailable LePine, M Katie DOCUMENTATION BILLING CLERK Unavailable Unavailable LePine, M Katie DOCUMENTATION BILLING CLERK Unavailable Unavailable LePine, M Katie DOCUMENTATION BILLING CLERK Unavailable Unavailable LePine, M Katie DOCUMENTATION BILLING CLERK Unavailable Unavailable LePine, M Katie DOCUMENTATION BILLING CLERK Unavailable Unavailable LePine, M Katie DOCUMENTATION BILLING CLERK Unavailable Unavailable LePine, M Katie DOCUMENTATION BILLING CLERK Unavailable Unavailable LePine, M Katie DOCUMENTATION BILLING CLERK Unavailable Unavailable LePine, M Katie DOCUMENTATION BILLING CLERK Unavailable Unavailable LePine, M Katie DOCUMENTATION BILLING CLERK Unavailable Unavailable LePine, M Katie DOCUMENTATION BILLING CLERK Unavailable Unavailable LePine, M Katie DOCUMENTATION BILLING CLERK Unavailable Unavailable LePine, M Katie DOCUMENTATION BILLING CLERK Unavailable Unavailable LePine, M Katie DOCUMENTATION BILLING CLERK Unavailable Unavailable LePine, M Katie DOCUMENTATION BILLING CLERK Unavailable Unavailable LePine, M Katie DOCUMENTATION BILLING CLERK Unavailable Unavailable LePine, M Katie DOCUMENTATION BILLING CLERK Unavailable Unavailable LePine, M Katie DOCUMENTATION BILLING CLERK Unavailable Unavailable LePine, M Katie DOCUMENTATION BILLING CLERK Unavailable Unavailable LePine, M Katie DOCUMENTATION BILLING CLERK Unavailable Unavailable LePine, M Katie DOCUMENTATION BILLING CLERK Unavailable Unavailable LePine, M Katie DOCUMENTATION BILLING CLERK Unavailable Unavailable LePine, M Katie DOCUMENTATION BILLING CLERK Unavailable Unavailable LePine, M Katie DOCUMENTATION BILLING CLERK Unavailable Unavailable LePine, M Katie DOCUMENTATION BILLING CLERK Unavailable Unavailable LePine, M Katie DOCUMENTATION BILLING CLERK Unavailable Unavailable LePine, M Katie DOCUMENTATION BILLING CLERK Unavailable Unavailable LePine, M Katie DOCUMENTATION BILLING CLERK Unavailable Unavailable LePine, M Katie DOCUMENTATION BILLING CLERK Unavailable Unavailable LePine, M Katie DOCUMENTATION BILLING CLERK Unavailable Unavailable LePine, M Katie DOCUMENTATION BILLING CLERK Unavailable Unavailable LePine, M Katie DOCUMENTATION BILLING CLERK Unavailable Unavailable LePine, M Katie DOCUMENTATION BILLING CLERK Unavailable Unavailable LePine, M Katie DOCUMENTATION BILLING CLERK Unavailable Unavailable LePine, M Katie DOCUMENTATION BILLING CLERK Unavailable Unavailable LePine, M Katie DOCUMENTATION BILLING CLERK Unavailable Unavailable LePine, M Katie DOCUMENTATION BILLING CLERK Unavailable Unavailable LePine, M Katie DOCUMENTATION BILLING CLERK Unavailable Unavailable LePine, M Katie DOCUMENTATION BILLING CLERK Unavailable Unavailable LePine, M Katie DOCUMENTATION BILLING CLERK Unavailable Unavailable LePine, M Katie DOCUMENTATION BILLING CLERK Unavailable Unavailable LePine, M Katie DOCUMENTATION BILLING CLERK Unavailable Unavailable LePine, M Katie DOCUMENTATION BILLING CLERK Unavailable Unavailable LePine, M Katie DOCUMENTATION BILLING CLERK Unavailable Unavailable LePine, M Katie DOCUMENTATION BILLING CLERK Unavailable Unavailable LePine, M Katie DOCUMENTATION BILLING CLERK Unavailable Unavailable LePine, M Katie DOCUMENTATION BILLING CLERK Unavailable Unavailable LePine, M Katie DOCUMENTATION BILLING CLERK Unavailable Unavailable LePine, M Katie DOCUMENTATION BILLING CLERK Unavailable Unavailable LePine, M Katie DOCUMENTATION BILLING CLERK Unavailable Unavailable LePine, M Katie DOCUMENTATION BILLING CLERK Unavailable Unavailable LePine, M Katie DOCUMENTATION BILLING CLERK Unavailable Unavailable LePine, M Katie DOCUMENTATION BILLING CLERK Unavailable Unavailable LePine, M Katie DOCUMENTATION BILLING CLERK Unavailable Unavailable LePine, M Katie DOCUMENTATION BILLING CLERK Unavailable Unavailable LePine, M Katie DOCUMENTATION BILLING CLERK Unavailable Unavailable LePine, M Katie DOCUMENTATION BILLING CLERK Unavailable Unavailable LePine, M Katie DOCUMENTATION BILLING CLERK Unavailable Unavailable LePine, M Katie DOCUMENTATION BILLING CLERK Unavailable Unavailable LePine, M Aktie DOCUMENTATION BILLING CLERK Unavailable Unavailable LePine, M Katie DOCUMENTATION BILLING CLERK Unavailable Unavailable LePine, M Katie DOCUMENTATION BILLING CLERK Unavailable Unavailable LePine, M Katie DOCUMENTATION BILLING CLERK Unavailable Unavailable LePine, M Katie DOCUMENTATION BILLING CLERK Unavailable Unavailable LePine, M Katie DOCUMENTATION BILLING CLERK Unavailable Unavailable LePine, M Katie DOCUMENTATION BILLING CLERK Unavailable Unavailable LePine, M Katie DOCUMENTATION BILLING CLERK Unavailable Unavailable LePine, M Katie DOCUMENTATION BILLING CLERK Unavailable Unavailable LePine, M Katie DOCUMENTATION BILLING CLERK Unavailable Unavailable LePine, M Katie DOCUMENTATION BILLING CLERK Unavailable Unavailable LePine, M Katie DOCUMENTATION BILLING CLERK Unavailable Unavailable LePine, M Katie DOCUMENTATION BILLING CLERK Unavailable Unavailable LePine, M Katie DOCUMENTATION BILLING CLERK Unavailable Unavailable LePine, M Katie DOCUMENTATION BILLING CLERK Unavailable Unavailable LePine, M Kaite DOCUMENTATION BILLING CLERK Unavailable Unavailable LePine, M Katie DOCUMENTATION BILLING CLERK Unavailable Unavailable LePine, M Katie DOCUMENTATION BILLING CLERK Unavailable Unavailable LePine, M Katie DOCUMENTATION BILLING CLERK Unavailable Unavailable LePine, M Katie DOCUMENTATION BILLING CLERK Unavailable Unavailable Kari Sibley MD Unavailable Unavailable Kari Sibley MD Unavailable Unavailable Kari Sibley MD Unavailable Unavailable Kari Sibley MD Unavailable Unavailable Kari Sibley MD Unavailable Unavailable Kari Sibley MD Unavailable Unavailable Kari Sibley MD Unavailable Unavailable Kari Sibley MD Unavailable Unavailable Kari Sibley MD Unavailable Unavailable Kari Sibley MD Unavailable Unavailable Kari Sibley MD Unavailable Unavailable Kari Sibley MD Unavailable Unavailable Kari Sibley MD Unavailable Unavailable Kari Sibley MD Unavailable Unavailable Kari Sibley MD Unavailable Unavailable Kari Sibley MD Unavailable Unavailable Kari Sibley MD Unavailable Unavailable Kari Sibley MD Unavailable Unavailable Kari Sibley MD Unavailable Unavailable Kari Sibley MD Unavailable Unavailable Kari Sibley MD Unavailable Unavailable Kari Sibley MD Unavailable Unavailable Kari Sibley MD Unavailable Unavailable Kari Sibley MD Unavailable Unavailable Kari Sibley MD Unavailable Unavailable Kari Sibley MD Unavailable Unavailable Kari Sibley MD Unavailable Unavailable Kari Sibley MD Unavailable Unavailable Kari Sibley MD Unavailable Unavailable Kari Sibley MD Unavailable Unavailable Kari Sibley MD Unavailable Unavailable Kari Sibley MD Unavailable Unavailable Kari Sibley MD Unavailable Unavailable Kari Sibley MD Unavailable Unavailable Kari Sibley MD Unavailable Unavailable Kari Sibley MD Unavailable Unavailable Kari Sibley MD Unavailable Unavailable Kari Sibley MD Unavailable Unavailable Kari Sibley MD Unavailable Unavailable Kari Sibley MD Unavailable Unavailable Ali, Kari MD Unavailable Unavailable Ali, Kari MD Unavailable Unavailable Ali, Kari MD Unavailable Unavailable Ali, Kari MD Unavailable Unavailable Ali, Kari MD Unavailable Unavailable Ali, Kari MD Unavailable Unavailable Ali, Kari MD Unavailable Unavailable Ali, Kari MD Unavailable Unavailable Ali, Kari MD Unavailable Unavailable Re-disclosure Warning The records that you are about to access may contain information from federally-assisted alcohol or drug abuse programs. If such information is present, then the following federally mandated warning applies: This information has been disclosed to you from records protected by federal confidentiality rules (42 CFR part 2). The federal rules prohibit you from making any further disclosure of this information unless further disclosure is expressly permitted by the written consent of the person to whom it pertains or as otherwise permitted by 42 CFR part 2. A general authorization for the release of medical or other information is NOT sufficient for this purpose. The Federal rules restrict any use of the information to criminally investigate or prosecute any alcohol or drug abuse patient.The records that you are about to access may contain highly sensitive health information, the redisclosure of which is protected by Article 27-F of the [facility] Public Health law. If you continue you may have access to information: Regarding HIV / AIDS; Provided by facilities licensed or operated by the [facility] Office of Mental Health; or Provided by the [facility] Office for People With Developmental Disabilities. If such information is present, then the following [facility] mandated warning applies: This information has been disclosed to you from confidential records which are protected by state law. State law prohibits you from making any further disclosure of this information without the specific written consent of the person to whom it pertains, or as otherwise permitted by law. Any unauthorized further disclosure in violation of state law may result in a fine or prison sentence or both. A general authorization for the release of medical or other information is NOT sufficient authorization for further disc losure. Family History Family Member Name Family Member Gender Family Member Status Date o f Status Description Data Source(s) Unknown Unknown Problem [facility] ([facility] Maternal grandfather Unknown Unknown Problem [facility] ([facility] Unknown Male Problem [facility] ([facility] Encounters Encounter Providers Location Date Indications Data Source(s ) Outpatient Attender: Kari Sibley MD Main office - [place] 07/05/2020 11:15:00 AM EST [facility] ([facility]) Outpatient Attender: Kari Sibley MD Main office - [place] 03/01/2020 02:15:00 PM EDT [facility] ([facility]) Outpatient Attender: Katie VALLECILLO Marianne [place] 12/24 09:00:00 AM EDT [facility] ([facility] ) Outpatient Attender: Kari Sibley MD Main office - [place] 10/30/2019 09:00:00 AM EDT [facility] ([facility]) Outpatient Attender: Kari Sibley MD Main office - [place] 06/30/2019 12:30:00 PM EST [facility] ([facility]) Outpatient Referrer: Katie VALLECILLO 06/30/2019 11:13:00 AM EST [facility] Medications Medication Brand Name Start Date Product Form Dose Route Admi nistrative Instructions Pharmacy Instructions Status Indications Reaction Description Data Source(s) Methylphenidate Hydrochloride 20 MG Oral Tablet METHYLPHENID ATE HCL 07/28/2020 12:00:00 AM EST tablet 60 TAKE ONE TABLET BY MOUTH TWICE A DAY MAXIMUM DAILY DOSE = 2 TAKE ONE TABLET BY MOUTH TWICE A DAY MAXIMUM DAILY DOS E = 2 SOLD: 07/30/2020 [facility] atorvastatin 10 MG Oral Tablet ATORVASTATIN CALCIUM 07/23/2020 1 2:00:00 AM EST tablet 90 TAKE ONE TABLET BY MOUTH EVERY D AY TAKE ONE TABLET BY MOUTH EVERY DAY SOLD: 07/24/2020 [facility] 100 mg 07/11/2020 12:00:00 AM EST tablet 30 TAKE ONE TABLET BY MOUTH TWICE A DAY AT 9AM. AND 1PM.. MAXIMUM DAILY DOSE = 2 TAKE ONE TABLET BY MOUTH TWICE A DAY AT 9AM. AND 1PM.. MAXIMUM DAILY DOSE = 2 SOLD: 07/12/2020 [facility] 100 mg 07/11/2020 12:00:00 AM EST tablet 30 TAKE ONE TABLET BY MOUTH TWICE A DAY AT 9AM. AND 1PM.. MAXIMUM DAILY DOSE = 2 TAKE ONE TABLET BY MOUTH TWICE A DAY AT 9AM. AND 1PM.. MAXIMUM DAILY DOSE = 2 SOLD: 08/11/2020 [facility] 100 mg 07/11/2020 12:00:00 AM EST tablet 30 TAKE ONE TABLET BY MOUTH TWICE A DAY AT 9AM. AND 1PM.. MAXIMUM DAILY DOSE = 2 TAKE ONE TABLET BY MOUTH TWICE A DAY AT 9AM. AND 1PM.. MAXIMUM DAILY DOSE = 2 SOLD: 07/27/2020 [facility] Methylphenidate Hydrochloride 20 MG Oral Tablet METHYLPHENID ATE HCL 06/29/2020 12:00:00 AM EST tablet 60 TAKE ONE TABLET BY MOUTH TWICE A DAY MAXIMUM DAILY DOSE = 2 TAKE ONE TABLET BY MOUTH TWICE A DAY MAXIMUM DAILY DOS E = 2 SOLD: 06/29/2020 [facility] 12.5 mg 06/27/2020 12:00:00 AM EST capsule 180 TAKE ONE CAPSULE BY MOUTH TWICE A DAY TAKE ONE CAPSULE BY MOUTH TWICE A DAY SOLD: 06/27/2020 [facility] 100 mg 06/27/2020 12:00:00 AM EST tablet 180 TAKE TWO TABLETS BY MOUTH EVERY DAY TAKE TWO TABLETS BY MOUTH EVERY DAY SOLD: 06/27/2020 [facility] 100 mg 06/13/2020 12:00:00 AM EST tablet 30 TAKE ONE TABLET BY MOUTH TWICE A DAY AT 9AM. AND 1PM. MAXIMUM DAILY DOSE = 2 TAKE ONE TABLET BY MOUTH TWICE A DAY AT 9AM. AND 1PM. MAXIMUM DAILY DOSE = 2 SOLD: 06/27/2020 [facility] 100 mg 06/13/2020 12:00:00 AM EST tablet 30 TAKE ONE TABLET BY MOUTH TWICE A DAY AT 9AM. AND 1PM. MAXIMUM DAILY DOSE = 2 TAKE ONE TABLET BY MOUTH TWICE A DAY AT 9AM. AND 1PM. MAXIMUM DAILY DOSE = 2 SOLD: 06/13/2020 [facility] 2 % 05/27/2020 12:00:00 AM EDT ointment 22 APPLY THREE TIMES A DAY FOR 7 DAYS APPLY THREE TIMES A DAY FOR 7 DAYS SOLD: 05/27/2020 [facility] Methylphenidate Hydrochloride 20 MG Oral Tablet METHYLPHENID ATE HCL 05/26/2020 12:00:00 AM EDT tablet 60 TAKE ONE TABLET BY MOUTH TWICE A DAY MAXIMUM DAILY DOSE = 2 TAKE ONE TABLET BY MOUTH TWICE A DAY MAXIMUM DAILY DOS E = 2 SOLD: 05/27/2020 [facility] 15 mEq 05/18/2020 12:00:00 AM EDT tablet extended release 60 TAKE ONE TABLET BY MOUTH TWICE A DAY WITH MEALS TAKE ONE TABLET BY MOUTH TWICE A DAY WITH MEALS SOLD: 06/24/2020 [facility] 15 mEq 05/18/2020 12:00:00 AM EDT tablet extended release 60 TAKE ONE TABLET BY MOUTH TWICE A DAY WITH MEALS TAKE ONE TABLET BY MOUTH TWICE A DAY WITH MEALS SOLD: 07/24/2020 [facility] 15 mEq 05/18/2020 12:00:00 AM EDT tablet extended release 60 TAKE ONE TABLET BY MOUTH TWICE A DAY WITH MEALS TAKE ONE TABLET BY MOUTH TWICE A DAY WITH MEALS SOLD: 05/20/2020 [facility] 15 mEq 05/18/2020 12:00:00 AM EDT tablet extended release 60 TAKE ONE TABLET BY MOUTH TWICE A DAY WITH MEALS TAKE ONE TABLET BY MOUTH TWICE A DAY WITH MEALS SOLD: 08/21/2020 [facility] Methylphenidate Hydrochloride 20 MG Oral Tablet METHYLPHENID ATE HCL 04/26/2020 12:00:00 AM EDT tablet 60 TAKE ONE TABLET BY MOUTH TWICE A DAY MAXIMUM DAILY DOSE = 2 TAKE ONE TABLET BY MOUTH TWICE A DAY MAXIMUM DAILY DOS E = 2 SOLD: 04/27/2020 [facility] Methylphenidate Hydrochloride 20 MG Oral Tablet METHYLPHENID ATE HCL 03/30/2020 12:00:00 AM EDT tablet 60 TAKE ONE TABLET BY MOUTH TWICE A DAY MAXIMUM DAILY DOSE = 2 TAKE ONE TABLET BY MOUTH TWICE A DAY MAXIMUM DAILY DOS E = 2 SOLD: 03/30/2020 [facility] 100 mg 03/02/2020 12:00:00 AM EDT tablet 30 TAKE 1 TABLET BY MOUTH AT 9AM AND 1 TABLET BY MOUTH AT 1PM. MAXIMUM DAILY DOSE = 2 TAKE 1 TABLET BY MOUTH AT 9AM AND 1 TABLET BY MOUTH AT 1PM. MAXIMUM DAILY DOSE = 2 SOLD: 04/27/2020 [facility] 100 mg 03/02/2020 12:00:00 AM EDT tablet 30 TAKE 1 TABLET BY MOUTH AT 9AM AND 1 TABLET BY MOUTH AT 1PM. MAXIMUM DAILY DOSE = 2 TAKE 1 TABLET BY MOUTH AT 9AM AND 1 TABLET BY MOUTH AT 1PM. MAXIMUM DAILY DOSE = 2 SOLD: 05/12/2020 [facility] 100 mg 03/02/2020 12:00:00 AM EDT tablet 30 TAKE 1 TABLET BY MOUTH AT 9AM AND 1 TABLET BY MOUTH AT 1PM. MAXIMUM DAILY DOSE = 2 TAKE 1 TABLET BY MOUTH AT 9AM AND 1 TABLET BY MOUTH AT 1PM. MAXIMUM DAILY DOSE = 2 SOLD: 04/01/2020 [facility] 100 mg 03/02/2020 12:00:00 AM EDT tablet 30 TAKE 1 TABLET BY MOUTH AT 9AM AND 1 TABLET BY MOUTH AT 1PM. MAXIMUM DAILY DOSE = 2 TAKE 1 TABLET BY MOUTH AT 9AM AND 1 TABLET BY MOUTH AT 1PM. MAXIMUM DAILY DOSE = 2 SOLD: 03/17/2020 [facility] 100 mg 03/02/2020 12:00:00 AM EDT tablet 30 TAKE 1 TABLET BY MOUTH AT 9AM AND 1 TABLET BY MOUTH AT 1PM. MAXIMUM DAILY DOSE = 2 TAKE 1 TABLET BY MOUTH AT 9AM AND 1 TABLET BY MOUTH AT 1PM. MAXIMUM DAILY DOSE = 2 SOLD: 03/03/2020 [facility] 100 mg 03/02/2020 12:00:00 AM EDT tablet 30 TAKE 1 TABLET BY MOUTH AT 9AM AND 1 TABLET BY MOUTH AT 1PM. MAXIMUM DAILY DOSE = 2 TAKE 1 TABLET BY MOUTH AT 9AM AND 1 TABLET BY MOUTH AT 1PM. MAXIMUM DAILY DOSE = 2 SOLD: 05/27/2020 [facility] modafinil 100 MG Oral Tablet Modafinil 03/01/2020 12:00:00 AM EDT ORAL active [facility] ([facility] Methylphenidate Hydrochloride 20 MG Oral Tablet METHYLPHENID ATE HCL 03/01/2020 12:00:00 AM EDT tablet 60 TAKE ONE TABLET BY MOUTH TWICE A DAY MAXIMUM DAILY DOSE = 2 TAKE ONE TABLET BY MOUTH TWICE A DAY MAXIMUM DAILY DOS E = 2 SOLD: 03/01/2020 [facility] Methylphenidate Hydrochloride 20 MG Oral Tablet METHYLPHENID ATE HCL 01/30/2020 12:00:00 AM EDT tablet 60 TAKE ONE TABLET BY MOUTH TWICE A DAY MAXIMUM DAILY DOSE = 2 TABLETS TAKE ONE TABLET BY MOUTH TWICE A DAY MAX IMUM DAILY DOSE = 2 TABLETS SOLD: 01/30/2020 [facility] atorvastatin 10 MG Oral Tablet ATORVASTATIN CALCIUM 01/20/2020 1 2:00:00 AM EDT tablet 30 TAKE ONE TABLET BY MOUTH EVERY D AY TAKE ONE TABLET BY MOUTH EVERY DAY SOLD: 04/21/2020 [facility] 10 mg 01/20/2020 12:00:00 AM EDT tablet 90 TAKE ONE TABLET BY MOUTH EVERY DAY TAKE ONE TABLET BY MOUTH EVERY DAY SOLD: 01/21/2020 [facility] atorvastatin 10 MG Oral Tablet ATORVASTATIN CALCIUM 01/20/2020 1 2:00:00 AM EDT tablet 30 TAKE ONE TABLET BY MOUTH EVERY D AY TAKE ONE TABLET BY MOUTH EVERY DAY SOLD: 05/20/2020 [facility] atorvastatin 10 MG Oral Tablet ATORVASTATIN CALCIUM 01/20/2020 1 2:00:00 AM EDT tablet 30 TAKE ONE TABLET BY MOUTH EVERY D AY TAKE ONE TABLET BY MOUTH EVERY DAY SOLD: 06/24/2020 [facility] 15 mEq 01/18/2020 12:00:00 AM EDT tablet extended release 60 TAKE ONE TABLET BY MOUTH TWICE A DAY WITH MEALS TAKE ONE TABLET BY MOUTH TWICE A DAY WITH MEALS SOLD: 02/20/2020 [facility] 15 mEq 01/18/2020 12:00:00 AM EDT tablet extended release 60 TAKE ONE TABLET BY MOUTH TWICE A DAY WITH MEALS TAKE ONE TABLET BY MOUTH TWICE A DAY WITH MEALS SOLD: 03/21/2020 [facility] 15 mEq 01/18/2020 12:00:00 AM EDT tablet extended release 60 TAKE ONE TABLET BY MOUTH TWICE A DAY WITH MEALS TAKE ONE TABLET BY MOUTH TWICE A DAY WITH MEALS SOLD: 04/21/2020 [facility] 15 mEq 01/18/2020 12:00:00 AM EDT tablet extended release 60 TAKE ONE TABLET BY MOUTH TWICE A DAY WITH MEALS TAKE ONE TABLET BY MOUTH TWICE A DAY WITH MEALS SOLD: 01/21/2020 [facility] 20 mg 01/01/2020 12:00:00 AM EDT tablet 60 TAKE ONE TABLET BY MOUTH TWICE A DAY MAXIMUM DAILY DOSE = 2 TABLETS TAKE ONE TABLET BY MOUTH TWICE A DAY MAX IMUM DAILY DOSE = 2 TABLETS SOLD: 01/01/2020 [facility] 100 mg 12/28/2019 12:00:00 AM EDT tablet 180 TAKE TWO TABLETS BY MOUTH EVERY DAY TAKE TWO TABLETS BY MOUTH EVERY DAY SOLD: 12/30/2019 [facility] 12.5 mg 12/28/2019 12:00:00 AM EDT capsule 180 TAKE ONE CAPSULE BY MOUTH TWICE A DAY TAKE ONE CAPSULE BY MOUTH TWICE A DAY SOLD: 12/30/2019 [facility] 100 mg 12/28/2019 12:00:00 AM EDT tablet 180 TAKE TWO TABLETS BY MOUTH EVERY DAY TAKE TWO TABLETS BY MOUTH EVERY DAY SOLD: 03/29/2020 [facility] 12.5 mg 12/28/2019 12:00:00 AM EDT capsule 180 TAKE ONE CAPSULE BY MOUTH TWICE A DAY TAKE ONE CAPSULE BY MOUTH TWICE A DAY SOLD: 03/29/2020 [facility] Glucosamine Chondroitin 1500 Complex Maximum Strength 12/25/2019 12:00:00 AM EDT active [facility] ([facility]) 20 mg 11/30/2019 12:00:00 AM EDT tablet 60 TAKE 1 TABLET BY MOUTH TWO TIMES A DAY MAXIMUM DAILY DOSE = 2 TAKE 1 TABLET BY MOUTH TWO TIMES A DAY M AXIMUM DAILY DOSE = 2 SOLD: 12/01/2019 [facility] 20 mg 11/01/2019 12:00:00 AM EDT tablet 60 TAKE ONE TABLET BY MOUTH TWICE A DAY MAXIMUM DAILY DOSE = 2 TAKE ONE TABLET BY MOUTH TWICE A DAY MAX IMUM DAILY DOSE = 2 SOLD: 11/01/2019 [facility] Methylphenidate Hydrochloride 10 MG Oral Tablet Methylphenid ate HCL 10/29/2019 12:00:00 AM EDT active M [facility] ([facility]) 20 mg 09/30/2019 12:00:00 AM EST tablet 60 TAKE 1 TABLET BY MOUTH TWO TIMES A DAY MAXIMUM DAILY DOSE = 2 TAKE 1 TABLET BY MOUTH TWO TIMES A DAY M AXIMUM DAILY DOSE = 2 SOLD: 10/01/2019 [facility] 15 mEq 09/21/2019 12:00:00 AM EST tablet extended release 60 TAKE ONE TABLET BY MOUTH TWICE A DAY WITH MEALS TAKE ONE TABLET BY MOUTH TWICE A DAY WITH MEALS SOLD: 12/22/2019 [facility] 15 mEq 09/21/2019 12:00:00 AM EST tablet extended release 60 TAKE ONE TABLET BY MOUTH TWICE A DAY WITH MEALS TAKE ONE TABLET BY MOUTH TWICE A DAY WITH MEALS SOLD: 09/23/2019 [facility] 15 mEq 09/21/2019 12:00:00 AM EST tablet extended release 60 TAKE ONE TABLET BY MOUTH TWICE A DAY WITH MEALS TAKE ONE TABLET BY MOUTH TWICE A DAY WITH MEALS SOLD: 11/22/2019 [facility] 15 mEq 09/21/2019 12:00:00 AM EST tablet extended release 60 TAKE ONE TABLET BY MOUTH TWICE A DAY WITH MEALS TAKE ONE TABLET BY MOUTH TWICE A DAY WITH MEALS SOLD: 10/22/2019 [facility] 20 mg 09/02/2019 12:00:00 AM EST tablet 60 TAKE ONE TABLET BY MOUTH TWICE A DAY MAXIMUM DAILY DOSE = 2 TAKE ONE TABLET BY MOUTH TWICE A DAY MAX IMUM DAILY DOSE = 2 SOLD: 09/03/2019 [facility] Oseltamivir 75 MG Oral Capsule Oseltamivir Phosphate 08/11/2019 12:00:00 AM EST ORAL completed [facility] ([facility]) 75 mg 08/11/2019 12:00:00 AM EST capsule 10 TAKE ONE CAPSULE BY MOUTH EVERY DAY FOR 10 DAYS TAKE ONE CAPSULE BY MOUTH EVERY DAY FOR 10 DAYS SOLD: 08/11/2019 [facility] Methylphenidate Hydrochloride 20 MG Oral Tablet METHYLPHENID ATE HCL 08/04/2019 12:00:00 AM EST tablet 60 TAKE ONE TABLET BY MOUTH TWICE A DAY MAXIMUM DAILY DOSE = 2 TABLETS TAKE ONE TABLET BY MOUTH TWICE A DAY MAX IMUM DAILY DOSE = 2 TABLETS SOLD: 08/04/2019 [facility] 10 mg 07/25/2019 12:00:00 AM EST tablet 90 TAKE ONE TABLET BY MOUTH EVERY DAY TAKE ONE TABLET BY MOUTH EVERY DAY SOLD: 07/27/2019 [facility] 10 mg 07/25/2019 12:00:00 AM EST tablet 90 TAKE ONE TABLET BY MOUTH EVERY DAY TAKE ONE TABLET BY MOUTH EVERY DAY SOLD: 10/24/2019 [facility] 100 mg 07/01/2019 12:00:00 AM EST tablet 180 TAKE TWO TABLETS BY MOUTH EVERY DAY TAKE TWO TABLETS BY MOUTH EVERY DAY SOLD: 10/01/2019 [facility] 100 mg 07/01/2019 12:00:00 AM EST tablet 180 TAKE TWO TABLETS BY MOUTH EVERY DAY TAKE TWO TABLETS BY MOUTH EVERY DAY SOLD: 07/03/2019 [facility] 12.5 mg 07/01/2019 12:00:00 AM EST capsule 180 TAKE ONE CAPSULE BY MOUTH TWICE A DAY TAKE ONE CAPSULE BY MOUTH TWICE A DAY SOLD: 07/03/2019 [facility] 12.5 mg 07/01/2019 12:00:00 AM EST capsule 180 TAKE ONE CAPSULE BY MOUTH TWICE A DAY TAKE ONE CAPSULE BY MOUTH TWICE A DAY SOLD: 10/01/2019 [facility] Methylphenidate Hydrochloride 20 MG Oral Tablet METHYLPHENID ATE HCL 06/30/2019 12:00:00 AM EST tablet 60 TAKE ONE-HALF TA BLET BY MOUTH TWICE A DAY FOR 2 WEEKS THEN TAKE ONE TABLET BY MOUTH TWICE A DAY MAXIMUM DAILY DOSE = 2 TAKE ONE- HALF TABLET BY MOUTH TWICE A DAY FOR 2 WEEKS THEN TAKE ONE TABLET BY MOUTH TWICE A DAY MAXIMUM DAILY DOSE = 2 SOLD: 06/30/2019 [facility] Methylphenidate Hydrochloride 20 MG Oral Tablet Methylphenid ate HCL 06/30/2019 12:00:00 AM EST ORAL active M [facility] ([facility]) No Active Medications 06/30/2019 12:00:00 AM EST completed [facility] ([facility]) 15 mEq 05/25/2019 12:00:00 AM EDT tablet extended release 60 TAKE ONE TABLET BY MOUTH TWICE A DAY WITH MEALS TAKE ONE TABLET BY MOUTH TWICE A DAY WITH MEALS SOLD: 06/27/2019 [facility] 15 mEq 05/25/2019 12:00:00 AM EDT tablet extended release 60 TAKE ONE TABLET BY MOUTH TWICE A DAY WITH MEALS TAKE ONE TABLET BY MOUTH TWICE A DAY WITH MEALS SOLD: 08/25/2019 [facility] 15 mEq 05/25/2019 12:00:00 AM EDT tablet extended release 60 TAKE ONE TABLET BY MOUTH TWICE A DAY WITH MEALS TAKE ONE TABLET BY MOUTH TWICE A DAY WITH MEALS SOLD: 07/27/2019 [facility] Insurance Providers Payer name Policy type / Coverage type Policy ID Covered green party ID Covered green party's relationship to villalobos Policy Villalobos Plan Information [facility] [id number] SP [id number] [facility] [id number] SP [id number] R O [id number] S [id number] ANSI-Not a Secondary Insurance [id number] ANSI-Commercial [id number] ANSI-Not a Secondary Insurance [id number] ANSI-Commercial [id number] [facility] [id number] SP [id number] [employer] (Old) Medigap Part B [id number] Self [id number] Umr (New [employer]) Commercial [id number] [place] [id number] ANSI-Commercial [id number] ANSI-Not a Secondary Insurance [id number] [facility] [id number] ANSI-Not a Secondary Insurance [id number] ANSI-Commercial [id number] ANSI-Not a Secondary Insurance [id number] ANSI-Commercial [id number] ANSI-Commercial [id number] ANSI-Not a Secondary Insurance [id number] ANSI-Not a Secondary Insurance [id number] ANSI-Commercial [id number] ANSI-Commercial [id number] ANSI-Not a Secondary Insurance [id number] [employer] (Old) Medigap Part B [id number] Self [id number] [facility] [id number] SP [id number] ANSI-Commercial [id number] ANSI-Not a Secondary Insurance [id number] ANSI-Not a Secondary Insurance [id number] ANSI-Commercial [id number] ANSI-Commercial [id number] ANSI-Not a Secondary Insurance [id number] ANSI-Commercial [id number] ANSI-Not a Secondary Insurance [id number] ANSI-Commercial [id number] ANSI-Not a Secondary Insurance [id number] Umr Commercial [id number] Self [id number] UMR O [id number] S [id number] UMR [facility] [id number] SP [id number] [employer] Pos Commercial [id number] Self [id number] [employer]OM[employer] [id number] SP [id number] POMCO [id number] SP [id number] POMCO PPO O [id number] S [id number] POMCO [id number] SP [id number] Pom[employer] Ppo Commercial [id number] Self [id number] [employer] Ppo Commercial [id number] Self [id number] POMCO [id number] SP [id number] POMCO [id number] SP [id number] POMCO PPO O [id number] S [id number] [employer] Commercial Self POMCO U [id number] Self [id number] [employer]OM[employer] PPO P UNAVAILABLE S UNAVAILA BLE [id number] Results ID Date Data Source 08/18/2020 12:00:00 AM EST [facility] Name Value Range Interpretation Code Description Data Prudence rce(s) Supporting Document(s) SARS-CoV2 Rapid Antigen Positive [facility] This lab [facility] and reported by [facility]. ID Date Data Source [id number] 12/25/2019 09:03:00 AM EDT [facility] ([facility]) Name Value Range Interpretation Code Description Data Prudence rce(s) Supporting Document(s) Cholesterol [Mass/volume] in Serum or Plasma 128 mg/dL 131-200 [facility] Triglyceride [Mass/volume] in Serum or Plasma 137 mg/dL 30-150 [facility] ([facility]) Cholesterol in HDL [Mass/volume] in Serum or Plasma 51 mg/dL 35-60 [facility] ([facility]) Cholesterol in LDL [Mass/volume] in Serum or Plasma by calcu lation 50 CALC 50-159 [facility] ID Date Data Source [id number] 12/25/2019 09:02:00 AM EDT [facility] ([facility]) Name Value Range Interpretation Code Description Data Prudence rce(s) Supporting Document(s) Glucose [Mass/volume] in Serum or Plasma 94 mg/dL 74-99 [facility] ([facility]) 100-125 mg/dL PRE-DIABETES/FASTING >126 mg/dL DIABETES/FASTING Creatinine 1.3 mg/dL 0.6-1.3 [facility] Urea nitrogen [Mass/volume] in Serum or Plasma 23 mg/dL 7-18 [facility] ([facility]) Sodium [Moles/volume] in Serum or Plasma 141 meq/L 136-145 [facility] ([facility]) Chloride [Moles/volume] in Serum or Plasma 104 meq/L 98-107 [facility] ([facility]) Potassium [Moles/volume] in Serum or Plasma 4.3 meq/L 3.5-5.1 [facility] ([facility]) Calcium [Mass/volume] in Serum or Plasma 9.0 mg/dL 8.5-10.1 [facility] ([facility]) Glomerular filtration rate/1.73 sq M pre dicted among non-blacks [Volume Rate/Area] in Serum or Plasma by Creatinine-based formula (MDRD) 59 mL/min [facility] ([facility]) Carbon dioxide, total [Moles/volume] in Serum or Plasma 26 meq/L 21 -32 [facility] Glomerular filtration rate/1.73 sq M pre dicted among blacks [Volume Rate/Area] in Serum or Plasma by Creatinine-based formula (MDRD) Laboratory test result [facility] <content>CHRONIC KIDNEY DISEASE STAGING PER NKF</content>
<content></content>
<content>STAGE I & II GFR >= 60 NORMAL TO MILDLY DECREASED</content>
<content>STAGE III GFR 30-59 MODERATELY DECREASED</content>
<content>STAGE IV GFR 15-29 SEVERELY DECREASED</content>
<content>STAGE V GFR <15 VERY LITTLE GFR LEFT</content>
<content>ESRD GFR <15 ON PIECE DYEING MACHINE TENDER</content>
<content></content> ID Date Data Source [id number] 07/01/2019 09:14:00 AM EST [facility] ([facility], ) Name Value Range Interpretation Code Description Data Prudence rce(s) Supporting Document(s) Ceruloplasmin [Mass/volume] in Serum or Plasma 21.1 mg/dL 16.0-31.0 [facility] ([facility], ) Performed at: RN - [facility] [place] [phone] Associate Publisher: Katina Royal MD, Phone: [phone] ID Date Data Source [id number] 07/01/2019 09:14:00 AM EST [facility] ([facility], ) Name Value Range Interpretation Code Description Data Prudence rce(s) Supporting Document(s) Antinuclear Antibodies Direct Negative [facility] ([facility]) ID Date Data Source [id number] 07/01/2019 09:14:00 AM EST [facility] ([facility]) Name Value Range Interpretation Code Description Data Prudence rce(s) Supporting Document(s) Rheumatoid factor [Units/volume] in Serum or Plasma < 10.0 IU/ml [facility] ([facility], ) <content>note:<nlbl:demographic_changed></content>
<content>note:<nlbl:demog raphic_changed></content>
<content></content> Erythrocyte sedimentation rate by 2H Westergren method 1 mm/hr 0-1 5 [facility] ([facility], ) ID Date Data Source [id number] 07/01/2019 09:14:00 AM EST [facility] ([facility], ) Name Value Range Interpretation Code Description Data Prudence rce(s) Supporting Document(s) Vitamin B12 Level 482 pg/mL [facility] ([facility] ) VITAMIN B12 NORMAL RANGE NORMAL 247 - 911 PG/ML INDETERMINATE 211 - 246 PG/ML DEFICIENT LESS THAN 211 PG/ML Folate 11.5 ng/mL [facility] ([facility]) FOLATE NORMAL RANGE NORMAL GREATER THAN 5.4 NG/ML INDETERMINATE 3.4-5.4 NG/ML DEFICIENT LESS THAN 3.4 NG/ML ID Date Data Source [id number] 06/30/2019 12:00:00 AM EST [facility] Katie Ortega Patient Name: LOUISA [id number] [facility] Date of : 1970[place] [address] Date of Exam: 06/30/2019#: Fax: [phone] EXAM: US LEFT EXTREMITY, NON-VASCULAR (ST MASS) LIMITEDCLINICAL INFORMATION:COMPARISON: 06/10/2018CLINICAL HISTORY: Soft-tissue palpable finding, left calf mid anterolateralaspect.Sonographic evaluation was initially performed with the patient supine andno abnormality visualized in the area where the patient reports a palpablefinding when the patient was standing. There was a small soft-tissue massprojecting through the fascial layer into the subcutaneous fat andmeasuring 8 x 3 mm. This represents a defect in the fascia about the musclewith muscle tissue bulging though the 8 x 3 mm defect. This is non-visibleon last years exam. There are no other findings or fluid collections. Noother masses.IMPRESSION:1. Muscular hernia through fascial defect anterolateral aspect of the leftcalf seen only when the patient was standing. Depending on the degree oflaterality, this could be the anterior tibialis or the extensor digitorumlongus. Orthopedic referral recommended.Accredited by the [employer] in General Ultrasound.Tiago Ferro, JAMES/slmTiftikhar you for referring LOUISA GALLAGHER to our office. Electronically Signed - TIAGO FERRO MD 06/30/19 17:47 Name Value Range Interpretation Code Description Data Prudence rce(s) Supporting Document(s) Procedure Vital Signs ID Date Data Source UNK Name Value Range Interpretation Code Description Data Source(s) Body mass index (BMI) [Ratio] 37.1 kg/m2 37.1 k g/m2 [facility] ([facility]) Oxygen saturation in Arterial blood by Pulse oximetry 97 % 97 % [facility] ([facility]) Body weight 270.00 [lb_av] 270.00 [lb_av] [facility] T ([facility]) Body height 71.5 [in_i] 71.5 [in_i] [facility] ([facility]) 5'11.50" Heart rate 80 /min 80 /min [facility] ([facility])
--- OUTSIDE RECORDS SUMMARY | 2020-08-25 12:13 | CCD | Continuity of Care Document ---
Author Author Igor SIBLEY M.D. Organization Unknown Address [address] [place] [address] Phone [phone] Care Team Providers Care Bindery Machine Tender Name Role Phone Katie José AUTM [phone] Problems Active Problems Provider Date Obstructive sleep [...] lb BMI (Body Mass Index) 37.3 kg/m2 [place] Body Weight 178 lb Results Description No Information Available Procedures Description No Information Available Medical Devices Description No Information Available Encounters Type Date Location Provider Dx Diagnosis Office Visit 07/05/2020 12:[place] G[place]33 Obstructive sleep apnea (adult) (pediatric) [...] 07/05/2020 G47.61 Periodic limb movement disorder Kari Siblye M.D. 07/05/2020 G47.14 Hypersomnia due to medical [...]
[2020-08-25 12:57] LABS: BASO % 0.3 % (0.0-1.0); EOS # 0.2 10^3/uL (0.0-0.5); HEMATOCRIT 43.8 % (42.0-52.0); HEMOGLOBIN 15.4 g/dl (13.5-17.5); LYMPH # 0.9 10^3/uL (1.5-5.0); LYMPH % 27.3 % (24.0-44.0); MEAN CORPUSCULAR HEMOGLOBIN 29.5 pg (27.0-33.0); MEAN CORPUSCULAR HGB CONC 35.2 g/dl (32.0-36.5); MEAN CORPUSCULAR VOLUME 83.9 fl (80.0-96.0); MONO # 0.3 10^3/uL (0.0-0.8); MONO % 7.8 % (0.0-5.0); NEUTROPHILS # 1.9 10^3/uL (1.5-8.5); NEUTROPHILS % 58.7 % (36.0-66.0); PLATELET COUNT, AUTOMATED 135 10^3/uL (150-450); RED BLOOD COUNT 5.22 10^6/uL (4.30-6.10); WHITE BLOOD COUNT 3.2 10^3/uL (4.0-10.0)
[2020-08-25] MEDS ORDERED: ALLO100T PO (12:57)
[2020-08-25] MEDS ORDERED: METH20TA29 PO (12:57)
[2020-08-25] MEDS ORDERED: POTA4.25 PO (12:57)
--- OUTSIDE RECORDS SUMMARY | 2020-08-25 13:13 | CCD ---
Author Author [facility] Organization [facility] Address Unknown Phone Unavailable Care Team Providers Care Market Consultant Name Role Phone LePine, M Katie [employer] Unavailable Unavailable LePine, M Katie [employer] Unavailable Unavailable LePine, M Katie [employer] Unavailable Unavailable LePine, M Katie [employer] Unavailable Unavailable LePine, M Katie [employer] Unavailable Unavailable LePine, M Katie [employer] Unavailable Unavailable LePine, M Katie [employer] Unavailable Unavailable LePine, M Katie [employer] Unavailable Unavailable LePine, M Katie [employer] Unavailable Unavailable LePine, M Katie [employer] Unavailable Unavailable LePine, M Katie [employer] Unavailable Unavailable LePine, M Katie [employer] Unavailable Unavailable LePine, M Katie [employer] Unavailable Unavailable LePine, M Katie [employer] Unavailable Unavailable LePine, M Katie [employer] Unavailable Unavailable LePine, M Katie [employer] Unavailable Unavailable LePine, M Katie [employer] Unavailable Unavailable LePine, M Katie [employer] Unavailable Unavailable LePine, M Katie [employer] Unavailable Unavailable LePine, M Katie [employer] Unavailable Unavailable LePine, M Katie [employer] Unavailable Unavailable LePine, M Katie [employer] Unavailable Unavailable LePine, M Katie [employer] Unavailable Unavailable LePine, M Katie [employer] Unavailable Unavailable LePine, M Katie [employer] Unavailable Unavailable LePine, M Katie [employer] Unavailable Unavailable LePine, M Katie [employer] Unavailable Unavailable LePine, M Katie [employer] Unavailable Unavailable LePine, M Katie [employer] Unavailable Unavailable LePine, M Katie [employer] Unavailable Unavailable LePine, M Katie [employer] Unavailable Unavailable LePine, M Katie [employer] Unavailable Unavailable LePine, M Katie [employer] Unavailable Unavailable LePine, M Katie [employer] Unavailable Unavailable LePine, M Katie [employer] Unavailable Unavailable LePine, M Katie [employer] Unavailable Unavailable LePine, M Katie [employer] Unavailable Unavailable LePine, M Katie [employer] Unavailable Unavailable LePine, M Katie [employer] Unavailable Unavailable LePine, M Katie [employer] Unavailable Unavailable LePine, M Katie [employer] Unavailable Unavailable LePine, M Katie [employer] Unavailable Unavailable LePine, M Katie [employer] Unavailable Unavailable LePine, M Katie [employer] Unavailable Unavailable LePine, M Katie [employer] Unavailable Unavailable LePine, M Katie [employer] Unavailable Unavailable LePine, M Katie [employer] Unavailable Unavailable LePine, M Katie [employer] Unavailable Unavailable LePine, M Katie [employer] Unavailable Unavailable LePine, M Katie [employer] Unavailable Unavailable LePine, M Katie [employer] Unavailable Unavailable LePine, M Katie [employer] Unavailable Unavailable LePine, M Katie [employer] Unavailable Unavailable LePine, M Katie [employer] Unavailable Unavailable LePine, M Katie [employer] Unavailable Unavailable LePine, M Katie [employer] Unavailable Unavailable LePine, M Katie [employer] Unavailable Unavailable LePine, M Katie [employer] Unavailable Unavailable LePine, M Katie [employer] Unavailable Unavailable LePine, M Katie [employer] Unavailable Unavailable LePine, M Katie [employer] Unavailable Unavailable LePine, M Katie [employer] Unavailable Unavailable LePine, M Katie [employer] Unavailable Unavailable LePine, M Katie [employer] Unavailable Unavailable LePine, M Katie [employer] Unavailable Unavailable LePine, M Katie [employer] Unavailable Unavailable LePine, M Katie [employer] Unavailable Unavailable LePine, M Katie [employer] Unavailable Unavailable LePine, M Katie [employer] Unavailable Unavailable LePine, M Katie [employer] Unavailable Unavailable LePine, M Katie [employer] Unavailable Unavailable LePine, M Katie [employer] Unavailable Unavailable LePine, M Katie [employer] Unavailable Unavailable LePine, M Katie [employer] Unavailable Unavailable LePine, M Katie [employer] Unavailable Unavailable LePine, M Katie [employer] Unavailable Unavailable LePine, M Katie [employer] Unavailable Unavailable LePine, M Katie [employer] Unavailable Unavailable LePine, M Katie [employer] Unavailable Unavailable LePine, M Katie [employer] Unavailable Unavailable LePine, M Katie [employer] Unavailable Unavailable LePine, M Katie [employer] Unavailable Unavailable LePine, M Katie [employer] Unavailable Unavailable LePine, M Katie [employer] Unavailable Unavailable LePine, M Katie [employer] Unavailable Unavailable LePine, M Katie [employer] Unavailable Unavailable LePine, M Katie [employer] Unavailable Unavailable LePine, M Katie [employer] Unavailable Unavailable LePine, M Katie [employer] Unavailable Unavailable LePine, M Katie [employer] Unavailable Unavailable LePine, M Katie [employer] Unavailable Unavailable LePine, M Katie [employer] Unavailable Unavailable LePine, M Katie [employer] Unavailable Unavailable LePine, M Katie [employer] Unavailable Unavailable LePine, M Katie [employer] Unavailable Unavailable LePine, M Katie [employer] Unavailable Unavailable LePine, M Katie [employer] Unavailable Unavailable LePine, M Katie [employer] Unavailable Unavailable LePine, M Katie [employer] Unavailable Unavailable LePine, M Katie [employer] Unavailable Unavailable LePine, M Katie [employer] Unavailable Unavailable LePine, M Katie [employer] Unavailable Unavailable LePine, M Katie [employer] Unavailable Unavailable LePine, M Katie [employer] Unavailable Unavailable LePine, M Katie [employer] Unavailable Unavailable LePine, M Katie [employer] Unavailable Unavailable LePine, M Katie [employer] Unavailable Unavailable LePine, M Katie [employer] Unavailable Unavailable LePine, M Katie [employer] Unavailable Unavailable LePine, M Katie [employer] Unavailable Unavailable Kari Sibley MD Unavailable Unavailable [...] is protected by Article 27-F of the [facility] Public Health law. If you continue you may have access to information: Regarding HIV / AIDS; Provided by facilities licensed or operated by the [facility] Office of Mental Health; or Provided by the [facility] Office for People With Developmental Disabilities. If such information is present, then the following [facility] mandated warning applies: This information has been [...] Attender: Kari Sibley MD Main office - [facility] 07/05/2020 11:15:00 AM EST [facility] ([facility]) Outpatient Attender: Kari Sibley MD Main office - [facility] 03/01/2020 02:15:00 PM EDT [facility] ([facility]) Outpatient Attender: Katie VALLECILLO Marianne Lizamalogan 12/24 09:00:00 AM EDT [facility] ([facility] ) Outpatient Attender: Kari Sibley MD Main office - [facility] 10/30/2019 09:00:00 AM EDT [facility] ([facility]) Outpatient Attender: Kari Sibley MD Main office - [facility] 06/30/2019 12:30:00 PM EST [facility] ([facility]) Outpatient Referrer: Katie [...] MAXIMUM DAILY DOSE = 2 SOLD: 07/27/2020 [facility] Methylphenidate Hydrochloride 20 MG Oral Tablet METHYLPHENID ATE HCL 06/29/2020 12:00:00 AM EST tablet 60 TAKE ONE TABLET BY MOUTH TWICE A DAY MAXIMUM DAILY DOSE = 2 TAKE ONE TABLET BY MOUTH TWICE A DAY MAXIMUM DAILY DOS E = 2 SOLD: 06/29/2020 [facility] 12.5 mg 06/27/2020 12:00:00 AM EST capsule 180 TAKE ONE CAPSULE BY MOUTH TWICE A DAY TAKE ONE CAPSULE BY MOUTH TWICE A DAY SOLD: 06/27/2020 [facility] 100 mg 06/27/2020 12:00:00 AM EST tablet 180 TAKE TWO TABLETS BY MOUTH EVERY DAY TAKE TWO TABLETS BY MOUTH EVERY DAY SOLD: 06/27/2020 [facility] 100 mg 06/13/2020 12:00:00 AM EST tablet 30 TAKE ONE TABLET BY MOUTH TWICE A DAY AT 9AM. AND 1PM. MAXIMUM DAILY DOSE = 2 TAKE ONE TABLET BY MOUTH TWICE A DAY AT 9AM. AND 1PM. MAXIMUM DAILY DOSE = 2 SOLD: 06/27/2020 [facility] 100 mg 06/13/2020 12:00:00 AM EST tablet 30 TAKE ONE TABLET BY MOUTH TWICE A DAY AT 9AM. AND 1PM. MAXIMUM DAILY DOSE = 2 TAKE ONE TABLET BY MOUTH TWICE A DAY AT 9AM. AND 1PM. MAXIMUM DAILY DOSE = 2 SOLD: 06/13/2020 [facility] 2 % 05/27/2020 12:00:00 AM EDT ointment 22 APPLY THREE TIMES A DAY FOR 7 DAYS APPLY THREE TIMES A DAY FOR 7 DAYS SOLD: 05/27/2020 [email or web address] Methylphenidate Hydrochloride 20 MG Oral Tablet METHYLPHENID ATE HCL 05/26/2020 12:00:00 AM EDT tablet 60 TAKE ONE TABLET BY MOUTH TWICE A DAY MAXIMUM DAILY DOSE = 2 TAKE ONE TABLET BY MOUTH TWICE A DAY MAXIMUM DAILY DOS E = 2 SOLD: 05/27/2020 [facility] 15 mEq 05/18/2020 12:00:00 AM EDT tablet extended release 60 TAKE ONE TABLET BY MOUTH TWICE A DAY WITH MEALS TAKE ONE TABLET BY MOUTH TWICE A DAY WITH MEALS SOLD: 06/24/2020 [facility] 15 mEq 05/18/2020 12:00:00 AM EDT [...] 03/01/2020 12:00:00 AM EDT ORAL active [facility] ([facility] ) Methylphenidate Hydrochloride 20 MG Oral [...] Strength 12/25/2019 12:00:00 AM EDT active [facility] ([facility]) 20 mg 11/30/2019 12:00:00 AM EDT [...] IMUM DAILY DOSE = 2 SOLD: 11/01/2019 [facility] Methylphenidate Hydrochloride 10 MG Oral Tablet Methylphenid ate HCL 10/29/2019 12:00:00 AM EDT active M [facility] ([facility]) 20 mg 09/30/2019 12:00:00 AM EST [...] 08/11/2019 12:00:00 AM EST ORAL completed [facility] ([facility]) 75 mg 08/11/2019 12:00:00 AM EST [...] BY MOUTH TWICE A DAY SOLD: 10/01/2019 [facility] Methylphenidate Hydrochloride 20 MG Oral Tablet [...] MAXIMUM DAILY DOSE = 2 SOLD: 06/30/2019 [facility] Methylphenidate Hydrochloride 20 MG Oral Tablet Methylphenid ate HCL 06/30/2019 12:00:00 AM EST ORAL active M [facility] ([facility]) No Active Medications 06/30/2019 12:00:00 AM EST completed [facility] ([facility]) 15 mEq 05/25/2019 12:00:00 [...] A DAY WITH MEALS SOLD: 07/27/2019 [facility] [employer] [place] [employer] Insurance Providers Payer name Policy type / Coverage type Policy ID Covered alliance party ID Covered alliance party's relationship to villalobos Policy Villalobos Plan Information [facility] [id number] SP [id number] [facility] [id number] SP [id number] R O [id number] S [id number] ANSI-Not a Secondary Insurance [id number] ANSI-Commercial [id number] ANSI-Not a Secondary Insurance [id number] ANSI-Commercial [id number] [facility] [id number] SP [id number] [employer] (Old) Medigap Part B [id number] Self [id number] Umr (New [employer]) Commercial [id number] [place] [id number] ANSI-Commercial [id number] ANSI-Not a Secondary Insurance [id number] [facility] [id number] ANSI-Not a Secondary Insurance [id number] ANSI-Commercial [id number] ANSI-Not a Secondary Insurance [id number] ANSI-Commercial [id number] ANSI-Commercial [id number] ANSI-Not a Secondary Insurance [id number] ANSI-Not a Secondary Insurance [id number] ANSI-Commercial [id number] ANSI-Commercial [id number] ANSI-Not a Secondary Insurance [id number] [employer] (Old) Medigap Part B [id number] Self [id number] R [facility] [id number] SP [id number] ANSI-Commercial [id number] ANSI-Not a Secondary Insurance [id number] ANSI-Not a Secondary Insurance [id number] ANSI-Commercial [id number] ANSI-Commercial [id number] ANSI-Not a Secondary Insurance [id number] ANSI-Commercial [id number] ANSI-Not a Secondary Insurance [id number] ANSI-Commercial [id number] ANSI-Not a Secondary Insurance [id number] Umr Commercial [id number] Self [id number] UMR O [id number] S [id number] UMR [facility] [id number] SP [id number] [employer] Pos Commercial [id number] Self [id number] [employer] [id number] SP [id number] [employer] [id number] SP [id number] [employer] PPO O [id number] S [id number] [employer]OM[employer] [id number] SP [id number] [employer] Ppo Commercial [id number] Self [id number] [employer] Ppo Commercial [id number] Self [id number] POMCO [id number] SP [id number] [employer]OM[employer] [id number] SP [id number] [employer]OM[employer] PPO O [id number] S [id number] [employer] Commercial Self POMCO U [id number] Self [id number] [employer] PPO P UNAVAILABLE S UNAVAILA BLE [id number] Results ID Date Data Source 08/18/2020 12:00:00 AM EST [facility] Name Value Range Interpretation Code Description Data Prudence rce(s) Supporting Document(s) SARS-CoV2 Rapid Antigen Positive [facility] This lab [facility] by [facility] and reported by [facility]. ID Date Data Source [id number] 12/25/2019 09:03:00 AM EDT [facility] ([facility]) Name Value Range Interpretation Code Description Data Prudence rce(s) Supporting Document(s) Cholesterol [Mass/volume] in Serum or Plasma 128 mg/dL 131-200 [facility] Triglyceride [Mass/volume] in Serum or Plasma 137 mg/dL 30-150 [facility] ([facility]) Cholesterol in HDL [Mass/volume] in Serum or Plasma 51 mg/dL 35-60 [facility] ([facility]) Cholesterol in LDL [Mass/volume] in Serum or Plasma by calcu lation 50 CALC 50-159 [facility]) ID Date Data Source [id number] 12/25/2019 09:02:00 AM EDT [facility] ([facility]) Name Value Range Interpretation Code Description Data Prudence rce(s) Supporting Document(s) Glucose [Mass/volume] in Serum or Plasma 94 mg/dL 74-99 [facility] ([facility]) 100-125 mg/dL PRE-DIABETES/FASTING >126 mg/dL DIABETES/FASTING Creatinine 1.3 mg/dL 0.6-1.3 [facility] ([facility]) Urea nitrogen [Mass/volume] in Serum or Plasma 23 mg/dL 7-18 [facility] ([facility]) Sodium [Moles/volume] in Serum or Plasma 141 meq/L 136-145 [facility] ([facility]) Chloride [Moles/volume] in Serum or Plasma 104 meq/L 98-107 [facility] ([facility]) Potassium [Moles/volume] in Serum or Plasma 4.3 meq/L 3.5-5.1 [facility] ([facility]) Calcium [Mass/volume] in Serum or Plasma 9.0 mg/dL 8.5-10.1 [facility] ([facility]) Glomerular filtration rate/1.73 sq M pre dicted among non-blacks [Volume Rate/Area] in Serum or Plasma by Creatinine-based formula (MDRD) 59 mL/min [facility] ([facility]) Carbon dioxide, total [Moles/volume] in Serum or Plasma 26 meq/L 21 -32 [facility] Glomerular filtration rate/1.73 sq M pre dicted among blacks [Volume Rate/Area] in Serum or Plasma by Creatinine-based formula (MDRD) Laboratory test result [facility] <content>CHRONIC KIDNEY DISEASE STAGING PER NKF</content>
<content></content>
<content>STAGE I & II GFR >= 60 NORMAL TO MILDLY DECREASED</content>
<content>STAGE III GFR 30-59 MODERATELY DECREASED</content>
<content>STAGE IV GFR 15-29 SEVERELY DECREASED</content>
<content>STAGE V GFR <15 VERY LITTLE GFR LEFT</content>
<content>ESRD GFR <15 ON TACTICAL DEBRIEFER OFFICER</content>
<content></content> ID Date Data Source [id number] 07/01/2019 09:14:00 AM EST [facility] ([facility], ) Name Value Range Interpretation Code Description Data Prudence rce(s) Supporting Document(s) Ceruloplasmin [Mass/volume] in Serum or Plasma 21.1 mg/dL 16.0-31.0 [facility] ([facility], ) Performed at: RN - [facility] [place] [id number] Supervisor Incising: Katina Royal MD, Phone: [phone] ID Date Data Source [id number] 07/01/2019 09:14:00 AM EST [facility] ([facility] ) Name Value Range Interpretation Code Description Data Prudence rce(s) Supporting Document(s) Antinuclear Antibodies Direct Negative [facility] ([facility]) ID Date Data Source [id number] 07/01/2019 09:14:00 AM EST [facility] ([facility]) Name Value Range Interpretation Code Description Data Prudence rce(s) Supporting Document(s) Rheumatoid factor [Units/volume] in Serum or Plasma < 10.0 IU/ml [facility] ([facility], ) <content>note:<nlbl:demographic_changed></content>
<content>note:<nlbl:demog raphic_changed></content>
<content></content> Erythrocyte sedimentation rate by 2H Westergren method 1 mm/hr 0-1 5 [facility] ([facility], ) ID Date Data Source [id number] 07/01/2019 09:14:00 AM EST [facility] ([facility] ) Name Value Range Interpretation Code Description Data Prudence rce(s) Supporting Document(s) Vitamin B12 Level 482 pg/mL [facility] ([facility] ) VITAMIN B12 NORMAL RANGE NORMAL 247 - 911 PG/ML INDETERMINATE 211 - 246 PG/ML DEFICIENT LESS THAN 211 PG/ML Folate 11.5 ng/mL [facility] ([facility]) FOLATE NORMAL RANGE NORMAL GREATER THAN 5.4 NG/ML INDETERMINATE 3.4-5.4 NG/ML DEFICIENT LESS THAN 3.4 NG/ML ID Date Data Source [id number] 06/30/2019 12:00:00 AM EST [facility] Katie Ortega Patient Name: LOUISA [id number] [facility] Date of : 1970[place] [address] Date of Exam: 06/30/2019#: Fax: [phone] EXAM: [...] extensor digitorumlongus. Orthopedic referral recommended.Accredited by the [employer] in General Ultrasound.Tiago Ferro, JAMES/slmTiftikhar you for referring LOUISA GALLAGHER to our office. Electronically Signed - TIAGO FERRO MD 06/30/19 17:47 Name Value Range Interpretation Code Description Data Prudence rce(s) Supporting Document(s) Procedure Vital Signs ID Date Data Source UNK Name Value Range Interpretation Code Description Data Source(s) Body mass index (BMI) [Ratio] 37.1 kg/m2 37.1 k g/m2 [facility] ([facility]) Oxygen saturation in Arterial blood by Pulse oximetry 97 % 97 % [facility] ([facility]) Body weight 270.00 [lb_av] 270.00 [lb_av] [facility] ([facility]) Body height 71.5 [in_i] 71.5 [in_i] [facility] ([facility]) 5'11.50" Heart rate 80 /min 80 /min [facility] ([facility])
--- NOTE | 2020-08-25 13:25 | REP ---
INDICATION: Coronavirus workup. COMPARISON: None. TECHNIQUE: Portable FINDINGS: The technique utilized in obtaining the radiograph has magnified the cardiac silhouette and accentuated the interstitial markings. The superior mediastinal structures are midline. The cardiac silhouette is unremarkable in size, shape, and position. The diaphragmatic surfaces of the lungs are regular, and the costophrenic angles are clear. The pulmonary melchor are clear. The imaged osseous structures are intact. IMPRESSION: There is no acute cardiopulmonary disease. <Electronically signed by Roe Damian > 08/25/20 [id number]
[2020-08-25 13:36] LABS: ALT/SGPT 52 U/L (12-78); BILIRUBIN,TOTAL 0.7 MG/DL (0.2-1.0); BLOOD UREA NITROGEN 17 MG/DL (7-18); CALCIUM LEVEL 8.8 MG/DL (8.5-10.1); CARBON DIOXIDE LEVEL 30 MEQ/L (21-32); CHLORIDE LEVEL 104 MEQ/L (98-107); CK-MB VALUE MASS 2.1 NG/ML (<3.6); CPK CREATINE PHOSPHOKINASE 180 U/L (39-308); CREATININE FOR GFR 1.16 MG/DL (0.70-1.30); FERRITIN 389 NG/ML (26-388); GLOMERULAR FILTRATION RATE > 60.0 (>56); GLUCOSE, FASTING 88 MG/DL (70-100); LDH LACTATE DEHYDROGENASE 211 U/L (87-241); MB/CK RELATIVE INDEX 1.17 (< OR =4); POTASSIUM SERUM 3.7 MEQ/L (3.5-5.1); SODIUM LEVEL 138 MEQ/L (136-145); TOTAL PROTEIN 6.7 GM/DL (6.4-8.2); TROPONIN I < 0.02 NG/ML (< 0.10)
[2020-08-25 14:32] VITALS: BP 118/68
--- NOTE | 2020-08-25 20:37 | ECGEPIP ---
[facility] - ED Test Date: 2020-08-25 Pat Name: LOUISA JOHN Department: Room: - Gender: Male Compliance Examiner: damian : 1970 Requested By: Karri Mandujano Order Number: [id number] Reading MD: Karri Hernandez Measurements Intervals [place] Rate: 62 P: 9 LA: 220 QRS: 0 QRSD: 92 T: 8 QT: 379 QTc: 385 Interpretive Statements SINUS RHYTHM WITH FIRST DEGREE AV BLOCK NO PRIORS FOR COMPARISON Electronically Signed on 08-25-2020 20:36:30 EST by Karri Hernandez
== END 2020-08-25 14:48 | disposition home or self-care (01) ==
LOC: M ED 12:06
DX: U07.1 COVID-19 (principal); I44.0 Atrioventricular block, first degree; Z87.442 Personal history of urinary calculi; Z79.899 Other long term (current) drug therapy

== ENCOUNTER → 2020-12-29 | Outpatient (REF) | payer OTHER ==
[~2020-12-29] MED LIST changes: +ALLO100T PO; +METH20TA29 PO; +POTA4.25 PO
[2020-12-29 12:53] LABS: FOLATE 10.4 NG/ML; TOTAL 25(OH) VITAMIN D 20.6 NG/ML (30.0-100.0)
== END ==
LOC: M LAB REF 11:55
PROVIDERS: ATTEND Nurse Practitioner Adult Health
DX: R26.89 Other abnormalities of gait and mobility (principal)

== ENCOUNTER → 2021-05-05 | Outpatient (REF) | payer OTHER | LOC: M LAB REF 13:02 | PROVIDERS: ATTEND Internal Medicine Nephrology | DX: Z87.442 Personal history of urinary calculi (principal) ==

== ENCOUNTER → 2021-05-05 | Outpatient (REF) | payer OTHER ==
[2021-05-08 08:43] LABS: BLOOD UREA NITROGEN 23 MG/DL (7-18); CALCIUM LEVEL 8.8 MG/DL (8.5-10.1); CARBON DIOXIDE LEVEL 26 MEQ/L (21-32); CHLORIDE LEVEL 107 MEQ/L (98-107); CREATININE FOR GFR 1.22 MG/DL (0.70-1.30); GLOMERULAR FILTRATION RATE > 60.0 (>56); GLUCOSE, FASTING 91 MG/DL (70-100); SODIUM LEVEL 140 MEQ/L (136-145)
== END ==
LOC: M LAB REF 08:23 → M WUC 08:23
PROVIDERS: ATTEND Orthopaedic Surgery
DX: Z01.812 Encounter for preprocedural laboratory examination (principal)

== ENCOUNTER → 2022-02-15 | Outpatient (REF) | payer OTHER | LOC: M LAB REF 16:15 | PROVIDERS: ATTEND Nurse Practitioner Adult Health | DX: R21 Rash and other nonspecific skin eruption (principal) ==

== ENCOUNTER → 2022-08-19 | Outpatient (CLI) | payer OTHER ==
[~2022-08-19] MED LIST changes: +HYDR12.55 PO; +METH-1164 PO
== END ==
LOC: M LABSMTC 10:30
PROVIDERS: ATTEND Anesthesiology
DX: Z01.812 Encounter for preprocedural laboratory examination (principal); Z20.822 Contact with and (suspected) exposure to COVID-19

== ENCOUNTER 2022-08-22 08:08 | Day surgery (SDC) | payer OTHER ==
[~2022-08-22] VITALS: Ht 182.9 cm; Wt 130.6 kg
[~2022-08-22 08:08] MED LIST changes: +NS 1,000 ML IV ONE
[2022-08-22] MEDS ORDERED: LIDOCAINE 2% INJ 100 MG/5 ML SYRINGE As Ordered ONE (09:36)
[2022-08-22] MEDS ORDERED: propofoL 200 MG/20 ML VIAL As Ordered ONE ×2 (09:36→09:46)
[2022-08-22 10:20] VITALS: BP 112/67
== END 2022-08-22 10:45 | disposition home or self-care (01) ==
LOC: M OPP 08:08
PROVIDERS: ATTEND Internal Medicine Gastroenterology
DX: Z12.11 Encounter for screening for malignant neoplasm of colon (principal); D12.6 Benign neoplasm of colon, unspecified; K57.30 Diverticulosis of large intestine without perforation or abscess without bleeding; K64.0 First degree hemorrhoids; Z79.02 Long term (current) use of antithrombotics/antiplatelets; Z79.899 Other long term (current) drug therapy; Z99.89 Dependence on other enabling machines and devices; G47.33 Obstructive sleep apnea (adult) (pediatric); E78.00 Pure hypercholesterolemia, unspecified; F17.220 Nicotine dependence, chewing tobacco, uncomplicated; Z87.442 Personal history of urinary calculi

== ENCOUNTER → 2023-01-25 | Outpatient (CLI) | payer OTHER ==
[~2023-01-25] MED LIST changes: -NS 1,000 ML IV ONE
== END ==
LOC: M WHC 10:48
PROVIDERS: ATTEND Nurse Practitioner Family
DX: N18.2 Chronic kidney disease, stage 2 (mild) (principal); Z87.442 Personal history of urinary calculi

== ENCOUNTER → 2023-10-09 | Outpatient (CLI) | payer OTHER | LOC: M RAD 07:22 | PROVIDERS: ATTEND Physical Medicine & Rehabilitation | DX: M77.12 Lateral epicondylitis, left elbow (principal); M25.522 Pain in left elbow ==

== ENCOUNTER → 2024-12-01 | Outpatient (CLI) | payer OTHER ==
[~2024-12-01] MED LIST changes: -FLOM0.4C39 PO; +TAMS-18 PO
== END ==
LOC: M RAD 07:04
PROVIDERS: ATTEND Nurse Practitioner Family
DX: N17.9 Acute kidney failure, unspecified (principal); Z87.442 Personal history of urinary calculi; R82.994 Hypercalciuria; R16.1 Splenomegaly, not elsewhere classified; N13.2 Hydronephrosis with renal and ureteral calculous obstruction; K76.0 Fatty (change of) liver, not elsewhere classified